=== PATIENT | female | born 1960 | race African-American/Black ===

== ENCOUNTER 2019-11-22 17:42 | Inpatient (IN) | payer OTHER ==
[~2019-11-22] VITALS: Ht 167.6 cm; Wt 73.6 kg
[~2019-11-22 17:42] MED LIST: ALBU2.5V8 INH; AMLO5TAB10 PO; ASPI-482 PO; CHLO25TA10 PO; CLON0.2T PO; CYCL10TA2 PO; ERGO500027 PO; GLIM1TAB7 PO; HYDR-2761 PO; RANI150C PO; [UNRECOGNIZED DRUG - OTHER] PO
[2019-11-22] MEDS ORDERED: IV NORMAL SALINE 1000ML BAG 1,000 ML IV ONE (18:15)
--- NOTE | 2019-11-22 18:18 | PHYS DOC ---
Past Medical History Past Medical History: Arthritis, Diabetes-Type II, High Cholesterol, Hype rtension, Other Additional Past Medical Histor: chronic kidney disease Past Surgical History: Other Additional Past Surgical Histo: left foot surgery " for arthritis" Smoking Status: Current Every Day Smoker Alcohol Use: Rarely Drug Use: None General Adult EDM: Chief Complaint: ABNORMAL LABS HPI: HPI: Patient is a 59 year old female who presents for evaluation after known abnormal labs. Patient has history of chronic kidney disease and her renal function has recently worsened. Dr. Gordon is her physician. Patient is also seen at [facility]. She is not yet on dialysis. There is no reported fever but she does have "chronic chills". There is no known exposure to COVID and she does not have any obvious COVID-like symptoms. In fact she is not in any pain and other than some mild decreased urination she has no physical symptoms Review of Systems: Review of Systems: Constitutional: Denies fever has chronic chills. [] Eyes: Denies change in visual acuity. [] HENT: Denies nasal congestion or sore throat. [] Respiratory: Denies cough or shortness of breath. [] Cardiovascular: Denies chest pain or edema. [] GI: Denies abdominal pain, nausea, vomiting, bloody stools or diarrhea. [] : Denies dysuria, decreased urination. [] Musculoskeletal: Denies back pain or joint pain. [] Integument: Denies rash. [] Neurologic: Denies headache, focal weakness or sensory changes. [] Endocrine: Denies polyuria or polydipsia. [] Lymphatic: Denies swollen glands. [] Psychiatric: Denies depression or anxiety. [] Heart Score: Risk Factors: Risk Factors: DM, Current or recent (<one month) smoker, HTN, HLP, family history of CAD, obesity. Risk Scores: Score 0 - 3: 2.5% MACE over next 6 weeks - Discharge Home Score 4 - 6: 20.3% MACE over next 6 weeks - Admit for Clinical Observation Score 7 - 10: 72.7% MACE over next 6 weeks - Early Invasive Strategies Allergies: Allergies: Allergies Coded Allergies Type Severity Reaction Last Updated Verified No Known Drug Allergies 01/15/14 No Physical Exam: PE: Constitutional: Well developed, well nourished, mild acute distress, non-toxic appearance. [] HENT: Normocephalic, atraumatic, bilateral external ears normal, oropharynx moist, no oral exudates, nose normal. [] Eyes: PERRL, EOMI, conjunctiva normal, no discharge. [] Neck: Normal range of motion, no tenderness, supple. [] Cardiovascular:Heart rate regular rhythm, no murmur [] Lungs & Thorax: Bilateral breath sounds clear to auscultation [] Abdomen: Bowel sounds normal, soft, no tenderness, no masses, no pulsatile masses. [] Skin: Warm, dry, no erythema, no rash. [] Back: No tenderness. [] Extremities: No tenderness, no cyanosis, ROM intact, no edema. [] Neurologic: Alert and oriented X 3, normal motor function, normal sensory function, no focal deficits noted. [] Psychologic: Affect normal, judgement normal, mood normal. [] Current Patient Data: Labs: Laboratory Tests Test 11/22/19 18:05 11/22/19 18:20 Urine Collection Type Void Urine Color Yellow Urine Clarity Clear Urine pH 5.5 Urine Specific [place] 1.015 Urine Protein >=300 mg/dL Urine Glucose (UA) Negative mg/dL Urine Ketones (Stick) Negative mg/dL Urine Blood Negative Urine Nitrite Negative Urine Bilirubin Negative Urine Urobilinogen Dipstick 0.2 mg/dL Urine Leukocyte Esterase Small Urine RBC 0 /HPF Urine WBC 5-10 /HPF Urine Squamous Epithelial Cells Many /LPF Urine Bacteria Few /HPF Urine Mucus Marked /LPF White Blood Count 11.5 x10^3/uL Red Blood Count 2.65 x10^6/uL Hemoglobin 8.5 g/dL Hematocrit 25.4 % Mean Corpuscular Volume 96 fL Mean Corpuscular Hemoglobin 32 pg Mean Corpuscular Hemoglobin Concent 34 g/dL Red Cell Distribution Width 16.1 % Platelet Count 164 x10^3/uL Neutrophils (%) (Auto) 52 % Lymphocytes (%) (Auto) 38 % Monocytes (%) (Auto) 7 % Eosinophils (%) (Auto) 3 % Basophils (%) (Auto) 1 % Neutrophils # (Auto) 5.9 x10^3/uL Lymphocytes # (Auto) 4.3 x10^3/uL Monocytes # (Auto) 0.8 x10^3/uL Eosinophils # (Auto) 0.3 x10^3/uL Basophils # (Auto) 0.1 x10^3/uL Sodium Level 143 mmol/L Potassium Level 4.2 mmol/L Chloride Level 110 mmol/L Carbon Dioxide Level 18 mmol/L Anion Gap 15 Blood Urea Nitrogen 57 mg/dL Creatinine 7.0 mg/dL Estimated GFR (Cockcroft-Gault) 7.2 BUN/Creatinine Ratio 8 Glucose Level 71 mg/dL Calcium Level 8.5 mg/dL Total Bilirubin 0.1 mg/dL Aspartate Amino Transf (AST/SGOT) 12 U/L Alanine Aminotransferase (ALT/SGPT) 9 U/L Alkaline Phosphatase 59 U/L Total Protein 6.6 g/dL Albumin 3.6 g/dL Albumin/Globulin Ratio 1.2 Current Medications Medications (Trade) Dose Ordered Sig/Omid Route PRN Reason Start Time Stop Time Status Last Admin Dose Admin Sodium Chloride 1,000 ml @ 500 mls/hr 1X ONCE IV 11/22/19 18:15 11/22/19 20:14 Hydralazine HCl (Apresoline Inj) 10 mg 1X ONCE IVP 11/22/19 18:45 11/22/19 18:46 DC EKG: EKG: EKG shows normal sinus rhythm, rate 71, LVH, inverted T waves in inferior and lateral leads, not STEMI read at 6:54 PM [] Radiology/Procedures: Radiology/Procedures: [facility] [address] [place] [address] IMAGING REPORT Signed PATIENT: VU LEDBETTER ACCOUNT: [id number] : 1960 LOCATION: ER AGE: 59 SEX: F EXAM STATUS: REG ER ORD. PHYSICIAN: MELLISA VERA DO REASON: short of air PROCEDURE: CHEST AP ONLY INDICATION: Reason: short of air / Spl. Instructions: / History: COMPARISON: None. FINDINGS: Single view of chest obtained. Hypertrophic changes of the acromioclavicular joints with degenerative changes of the shoulders. Cardiac silhouette is mildly enlarged. No definite focal airspace consolidation. IMPRESSION: * No focal airspace consolidation. Electronically signed by: Kervin Monson MD (11/22/2019 6:32 PM) [id number] DICTATED and SIGNED BY: KERVIN MONSON MD DATE: 11/22/191831 [] Course & Med Decision Making: Course & Med Decision Making Pertinent Labs and Imaging studies reviewed. (See chart for details) [] Gustavo Disclaimer: Gustavo Disclaimer: This electronic medical record was generated, in whole or in part, using a voice recognition dictation system. 1840 stable, blood pressure is very elevated. Apparently it is chronically significantly elevated according to pt and family. Patient denies any headache or blurry vision. Dose of IV hydralazine ordered. Patient is in renal failure and will need admission the hospital 1905 Dr. Vera called back and we discussed case at length. Will consult [facility]auger tonight as well. 1916 Dr. Brown from Nephrology called back. No new instructions tonight. Pt may need dialysis as soon as tomorrow. Departure Departure Impression: Primary Impression: Acute renal failure Qualified Codes: N17.9 - Acute kidney failure, unspecified Additional Impressions: Hypertensive urgency Anemia Qualified Codes: D64.9 - Anemia, unspecified Acute UTI Disposition: ADMITTED INPATIENT Admitting Physician: HIMMayo Condition: STABLE Referrals: KUSHAL TESFAYE MD (PCP) Justicifation of Admission Dx: Justifications for Admission: Justification of Admission Dx: Yes Acute Renal Failure: Serum Cr > 4mg/dL NIHSS Stroke Scale NIH Stroke Scale: NIH Stroke Scale Response (Comments) Value Level of Consciousness: 0 Alert/Responsive 0 LOC Questions: 0 Answers both correctly 0 LOC Commands: 0 Performs both tasks 0 Best Gaze: 0 Normal 0 Visual: 0 No visual loss 0 Facial Palsy: 0 Normal, symmetrical 0 Motor - Left Arm 0 No drift 0 Motor - Right Arm 0 No drift 0 Motor - Left Leg 0 No drift 0 Motor: Right Leg 0 No drift 0 Limb Ataxia: 0 Absent 0 Sensory: 0 No loss 0 Best Language: 0 Normal 0 Dysathria: 0 Normal 0 Extinction and Inattention: 0 Normal 0 Total 0 Critical Care Time Critical care time was 30 minutes exclusive of procedures. This included talking to admitting hospitalist as well as planning lead, family, laboratory rotation as well as x-ray review MELLISA VERA DO Nov 22, 2019 18:18
[2019-11-22 18:32] LABS: BASO # 0.1 x10^3/uL (0.0-0.2); BASO % 1 % (0-3); EOS # 0.3 x10^3/uL (0.0-0.7); EOS % 3 % (0-3); HEMATOCRIT 25.4 % (36.0-47.0); HEMOGLOBIN 8.5 g/dL (12.0-15.5); LYMPH # 4.3 x10^3/uL (1.0-4.8); LYMPH % 38 % (24-48); MEAN CORPUSCULAR HEMOGLOBIN 32 pg (25-35); MEAN CORPUSCULAR HGB CONC 34 g/dL (31-37); MEAN CORPUSCULAR VOLUME 96 fL (79-100); MONO # 0.8 x10^3/uL (0.0-1.1); MONO % 7 % (0-9); NEUT # 5.9 x10^3/uL (1.8-7.7); NEUT % 52 % (31-73); PLATELET COUNT 164 x10^3/uL (140-400); RED BLOOD COUNT 2.65 x10^6/uL (3.50-5.40); RED CELL DISTRIBUTION WIDTH 16.1 % (11.5-14.5); WHITE BLOOD COUNT 11.5 x10^3/uL (4.0-11.0)
[2019-11-22 18:33] LABS: BILIRUBIN,URINE NEGATIVE (NEG); CLARITY,URINE CLEAR; COLOR,URINE YELLOW; NITRITE,URINE NEGATIVE (NEG); PH,URINE 5.5 (<5.0-8.0); PROTEIN,URINE >=300 mg/dL (NEG-TRACE); UROBILINOGEN,URINE 0.2 mg/dL (0.2 mg/dL)
--- NOTE | 2019-11-22 18:35 | RAD ---
INDICATION: Reason: short of air / Spl. Instructions: / History: COMPARISON: None. FINDINGS: Single view of chest obtained. Hypertrophic changes of the acromioclavicular joints with degenerative changes of the shoulders. Cardiac silhouette is mildly enlarged. No definite focal airspace consolidation. IMPRESSION: * No focal airspace consolidation. Electronically signed by: Lico Montano MD (11/22/2019 6:32 PM) [id number]
[2019-11-22 18:38] LABS: CALCIUM 8.5 mg/dL (8.5-10.1); GFR 7.2; POTASSIUM 4.2 mmol/L (3.5-5.1)
[2019-11-22 18:43] LABS: BACTERIA,URINE FEW /HPF (0-FEW); RBC,URINE 0 /HPF (0-2); SQUAMOUS EPITHELIAL CELL,UR MANY /LPF
[2019-11-22 18:44] LABS: ALBUMIN 3.6 g/dL (3.4-5.0); ALBUMIN/GLOBULIN RATIO 1.2 (1.0-1.7); TOTAL BILIRUBIN 0.1 mg/dL (0.2-1.0); TOTAL PROTEIN 6.6 g/dL (6.4-8.2)
[2019-11-22] MEDS ORDERED: hydrALAZINE 20 MG/ML VIAL. IVP ONE ×2 (18:45→22:00)
[2019-11-22] MEDS ORDERED: cefTRIAXone IV Push 1 GM VIAL. IVP ONE (19:00)
[2019-11-22] MEDS ORDERED: ONDANSETRON PF 4 MG/2 ML VIAL. IV PRN (19:15)
[2019-11-22] MEDS ORDERED: LABETALOL 20 MG/4 ML DISP.SYRIN. IVP ONE (20:00)
--- NOTE | 2019-11-22 20:14 | EKG ---
[facility] [address] [place] [address] Test Date: 2019-11-22 Test Time: 18:51:18 Pat Name: VU LEDBETTER Department: Room: Gender: F Chrome Tanner: : 1960 Requested By: MLELISA VERA Order Number: [id number] Reading MD: Measurements Intervals [place] Rate: 71 P: 33 MI: 238 QRS: 29 QRSD: 98 T: -83 QT: 400 QTc: 435 Interpretive Statements SINUS RHYTHM PROLONGED MI INTERVAL T ABNORMALITY IN ANTEROLATERAL LEADS INFEROLATERAL LEADS ABNORMAL ECG RI6.01 No previous ECG available for comparison
[2019-11-22 21:10] VITALS: BP 254/127
[2019-11-22 21:30] VITALS: BP 254/120
[2019-11-22] MEDS ORDERED: AMLO10TA8 PO (21:44)
[2019-11-22] MEDS ORDERED: ERGO500027 PO (21:44)
[2019-11-22] MEDS ORDERED: ATEN50TA PO (21:44)
[2019-11-22] MEDS ORDERED: OLME40TA12 PO (21:44)
[2019-11-22] MEDS ORDERED: HYDR-2868 PO (21:44)
--- NOTE | 2019-11-22 22:06 | NUR ---
Pt arrived to unit at approx 2100 accompanied by ED nurse. Patient VS checked BP 254/120. Pt stated "I don't know why you guys worry about my blood pressure, it has been this way forever. I don't want anyone to harp on the BP because if you bring it down and then it goes back up i will have a stroke" educated pt on her BP. Pt stated "i already know all this, i don't want them to bring it down because it will go back up". Pt states that she takes her medications as prescribed, just filled all medications today. Pt states that she took all medications for today already. Assessment complete. Pt resting comfortably on RA. No complaints of pain at this time. Call placed to Dr. Vera regarding BP, orders received. Oriented pt to unit, call light in reach, reminded pt to call for assistance before ambulating. bed in low locked position. Will continue to monitor.
[2019-11-22 22:15] VITALS: BP 197/89
[2019-11-22 22:30] VITALS: BP 210/93
[2019-11-22 22:45] VITALS: BP 206/97
[2019-11-22 23:00] VITALS: BP 197/89
[2019-11-22] MEDS ORDERED: cloNIDine TTS-2 1 PATCH PATCH TD SCH (23:30)
--- NOTE | 2019-11-22 23:53 | NUR ---
Pt refusing 3 AM vitals, explained the reisk and benefit. Pt agreed to allow BP to be taken.
[2019-11-23] VITALS (8 sets, daily range): BP systolic 84–236; BP diastolic 54–115
[2019-11-23] MEDS: hydrALAZINE 20 MG/ML VIAL. IVP PRN ×3 (03:10→10:55)
[2019-11-23] MEDS: HYDROcodone/APAP 5/325MG 1 TAB TABLET PO PRN ×2 (08:46→13:19)
[2019-11-23] MEDS ORDERED: ALBUTEROL SULFATE 2.5 MG/3 ML NEBU. INH PRN (09:00)
[2019-11-23] MEDS: cloNIDine HCL 0.2 MG TABLET PO SCH ×3 (10:46→21:07)
[2019-11-23] MEDS: amLODIPine BESYLATE 10 MG TABLET PO SCH (10:47)
[2019-11-23] MEDS: hydrALAZINE 25 MG TABLET PO SCH ×2 (10:47→21:06)
[2019-11-23] MEDS: ATENOLOL 50 MG TABLET. PO SCH (10:48)
--- NOTE | 2019-11-23 10:48 | NUR ---
SS following for discharge planning. SS reviewed pt chart and discussed with pt RN. Pt is from home with spouse and is currently on room air. SS will continue to follow for discharge planning.
--- NOTE | 2019-11-23 11:28 | PDOC1 ---
History and Physical Date of Admission Date of Admission DATE: 11/23/19 TIME: 11:22 Identification/Chief Complaint Chief Complaint abnormal labs Problems: (1) Acute renal failure (2) Hypertensive urgency Source Source: Chart review, Patient History of Present Illness History of Present Illness 59 year old hx of HTN, CHD admitted from PCP office, Dr. Gordon due to elevated creatine. not HD dependent yet. patient states she has no complaints. denies chest pain sob, nausea vomiting diarrhea. no neuro symptoms. takes all meds as prescribed. has seen Dr. Brown as outpatient. noted SBP >200 in ED. admitted due to worsening creatine and elevated BP Past Medical History Past Medical History HTN, CKD Past Surgical History Past Surgical History denies Family History Family History reviewed and denies Social History Smoke: <1 pack per day ALCOHOL: none Drugs: None Current Problem List Problem List Problems Medical Problems: (1) Acute renal failure Status: Acute (2) Acute UTI Status: Acute (3) Anemia Status: Acute (4) Hypertensive urgency Status: Acute Current Medications Current Medications Current Medications Sodium Chloride 1,000 ml @ 500 mls/hr 1X ONCE IV Last administered on 11/22/19at 18:15; Start 11/22/19 at 18:15; Stop 11/22/19 at 20:14; Status DC Hydralazine HCl (Apresoline Inj) 10 mg 1X ONCE IVP Last administered on 11/22/19at 18:45; Start 11/22/19 at 18:45; Stop 11/22/19 at 18:46; Status DC Ceftriaxone Sodium (Rocephin) 1 gm 1X ONCE IVP Last administered on 11/22/19at 19:00; Start 11/22/19 at 19:00; Stop 11/22/19 at 19:01; Status DC Ondansetron HCl (Zofran) 4 mg PRN Q8HRS PRN IV NAUSEA/VOMITING; Start 11/22/19 at 19:15; Stop 11/23/19 at 19:14 Labetalol HCl (Normodyne Iv Push) 20 mg 1X ONCE IVP Last administered on 11/22/19at 20:00; Start 11/22/19 at 20:00; Stop 11/22/19 at 20:01; Status DC Hydralazine HCl (Apresoline Inj) 20 mg 1X ONCE IVP Last administered on 11/22/19at 21:52; Start 11/22/19 at 22:00; Stop 11/22/19 at 22:01; Status DC Clonidine HCl (Catapres Tts-2) 1 patch WEEKLY TD Last administered on 11/22/19at 23:08; Start 11/22/19 at 23:30 Hydralazine HCl (Apresoline Inj) 20 mg PRN Q3HRS PRN IVP ELEVATED BP, SEE COMMENTS Last administered on 11/23/19at 10:55; Start 11/22/19 at 23:00 Acetaminophen/ Hydrocodone Bitart (Lortab 5/325) 1 tab PRN Q4HRS PRN PO PAIN Last administered on 11/23/19at 08:46; Start 11/23/19 at 08:30 Albuterol Sulfate (Ventolin Neb Soln) 2.5 mg PRN Q6HRS PRN INH SHORTNESS OF BREATH; Start 11/23/19 at 09:00 Amlodipine Besylate (Norvasc) 10 mg DAILY PO Last administered on 11/23/19at 10:47; Start 11/23/19 at 09:00 Atenolol (Tenormin) 50 mg DAILY PO Last administered on 11/23/19at 10:48; Start 11/23/19 at 09:00 Clonidine HCl (Catapres) 0.2 mg TID PO Last administered on 11/23/19at 10:46; Start 11/23/19 at 09:00 Cyclobenzaprine HCl (Flexeril) 10 mg QHS PO ; Start 11/23/19 at 21:00 Ergocalciferol (Vitamin D2) 50,000 unit Nix PO ; Start 11/25/19 at 09:00 Hydralazine HCl (Apresoline) 25 mg BID PO Last administered on 11/23/19at 10:47; Start 11/23/19 at 09:00 Active Scripts Active Reported Vitamin D2 (Ergocalciferol (Vitamin D2)) 1,250 Mcg Capsule 1,250 Mcg PO QSU Atenolol 50 Mg Tablet 50 Mg PO DAILY Hydralazine Hcl 25 Mg Tablet 25 Mg PO BID Benicar (Olmesartan Medoxomil) 40 Mg Tablet 40 Mg PO DAILY PRN Amlodipine Besylate 10 Mg Tablet 10 Mg PO DAILY Clonidine Hcl 0.2 Mg Tablet 1 Tab PO TID Cyclobenzaprine Hcl 10 Mg Tablet 1 Tab PO QHS Proair Hfa Inhaler (Albuterol Sulfate) 8.5 Gm Hfa.aer.ad 1 Puff INH PRN Q6HRS PRN Hydrocodone-Apap 5-325 (Hydrocodone Bit/Acetaminophen) 1 Each Tablet 1 Tab PO PRN Q8HRS PRN Allergies Allergies: Coded Allergies: No Known Drug Allergies (Unverified , 11/22/19) ROS Review of System CONSTITUTIONAL: No fever or chills EYES: No recent changes SKIN: No rash or itching CARDIOVASCULAR: No chest pain, syncope, palpitations, or edema RESPIRATORY: No SOB or cough GASTROINTESTINAL: No nausea, vomiting or abdominal pain NEUROLOGICAL: No headaches or weakness ENDOCRINE: No cold or heat intolerance GENITOURINARY: No urgency or frequency of urination MUSCULOSKELETAL: No back pain or joint pain LYMPHATICS: No enlarged lymph nodes PSYCHIATRIC: No anxiety or depression Physical Exam Physical Exam GENERAL: No apparent distress. Alert and oriented. HEENT: Head normocephalic, atraumatic. NECK: Supple LUNGS: Clear to auscultation. HEART: RRR, S1, S2 present, pulses intact ABDOMEN: Soft, positive bowel sounds. EXTREMITIES: No cyanosis or edema. NEUROLOGIC: Normal speech, normal tone PSYCHIATRIC: Normal affect, normal mood. SKIN: No ulceration. Vitals Vitals Vital Signs Date Time Temp Pulse Resp B/P (MAP) Pulse Ox O2 Delivery O2 Flow Rate FiO2 11/23/19 11:00 98.0 75 20 224/103 (143) 98 Room Air 98.0 Labs Labs Laboratory Tests Test 11/22/19 18:05 11/22/19 18:20 Urine Collection Type Void Urine Color Yellow Urine Clarity Clear Urine pH 5.5 (<5.0-8.0) Urine Specific [place] 1.015 (1.000-1.030) Urine Protein >=300 mg/dL (NEG-TRACE) Urine Glucose (UA) Negative mg/dL (NEG) Urine Ketones (Stick) Negative mg/dL (NEG) Urine Blood Negative (NEG) Urine Nitrite Negative (NEG) Urine Bilirubin Negative (NEG) Urine Urobilinogen Dipstick 0.2 mg/dL (0.2 mg/dL) Urine Leukocyte Esterase Small (NEG) Urine RBC 0 /HPF (0-2) Urine WBC 5-10 /HPF (0-4) Urine Squamous Epithelial Cells Many /LPF Urine Bacteria Few /HPF (0-FEW) Urine Mucus Marked /LPF White Blood Count 11.5 x10^3/uL (4.0-11.0) Red Blood Count 2.65 x10^6/uL (3.50-5.40) Hemoglobin 8.5 g/dL (12.0-15.5) Hematocrit 25.4 % (36.0-47.0) Mean Corpuscular Volume 96 fL (79-100) Mean Corpuscular Hemoglobin 32 pg (25-35) Mean Corpuscular Hemoglobin Concent 34 g/dL (31-37) Red Cell Distribution Width 16.1 % (11.5-14.5) Platelet Count 164 x10^3/uL (140-400) Neutrophils (%) (Auto) 52 % (31-73) Lymphocytes (%) (Auto) 38 % (24-48) Monocytes (%) (Auto) 7 % (0-9) Eosinophils (%) (Auto) 3 % (0-3) Basophils (%) (Auto) 1 % (0-3) Neutrophils # (Auto) 5.9 x10^3/uL (1.8-7.7) Lymphocytes # (Auto) 4.3 x10^3/uL (1.0-4.8) Monocytes # (Auto) 0.8 x10^3/uL (0.0-1.1) Eosinophils # (Auto) 0.3 x10^3/uL (0.0-0.7) Basophils # (Auto) 0.1 x10^3/uL (0.0-0.2) Sodium Level 143 mmol/L (136-145) Potassium Level 4.2 mmol/L (3.5-5.1) Chloride Level 110 mmol/L (98-107) Carbon Dioxide Level 18 mmol/L (21-32) Anion Gap 15 (6-14) Blood Urea Nitrogen 57 mg/dL (7-20) Creatinine 7.0 mg/dL (0.6-1.0) Estimated GFR (Cockcroft-Gault) 7.2 BUN/Creatinine Ratio 8 (6-20) Glucose Level 71 mg/dL (70-99) Calcium Level 8.5 mg/dL (8.5-10.1) Total Bilirubin 0.1 mg/dL (0.2-1.0) Aspartate Amino Transf (AST/SGOT) 12 U/L (15-37) Alanine Aminotransferase (ALT/SGPT) 9 U/L (14-59) Alkaline Phosphatase 59 U/L (46-116) Total Protein 6.6 g/dL (6.4-8.2) Albumin 3.6 g/dL (3.4-5.0) Albumin/Globulin Ratio 1.2 (1.0-1.7) Laboratory Tests Test 11/22/19 18:05 11/22/19 18:20 Urine Collection Type Void Urine Color Yellow Urine Clarity Clear Urine pH 5.5 (<5.0-8.0) Urine Specific [place] 1.015 (1.000-1.030) Urine Protein >=300 mg/dL (NEG-TRACE) Urine Glucose (UA) Negative mg/dL (NEG) Urine Ketones (Stick) Negative mg/dL (NEG) Urine Blood Negative (NEG) Urine Nitrite Negative (NEG) Urine Bilirubin Negative (NEG) Urine Urobilinogen Dipstick 0.2 mg/dL (0.2 mg/dL) Urine Leukocyte Esterase Small (NEG) Urine RBC 0 /HPF (0-2) Urine WBC 5-10 /HPF (0-4) Urine Squamous Epithelial Cells Many /LPF Urine Bacteria Few /HPF (0-FEW) Urine Mucus Marked /LPF White Blood Count 11.5 x10^3/uL (4.0-11.0) Red Blood Count 2.65 x10^6/uL (3.50-5.40) Hemoglobin 8.5 g/dL (12.0-15.5) Hematocrit 25.4 % (36.0-47.0) Mean Corpuscular Volume 96 fL (79-100) Mean Corpuscular Hemoglobin 32 pg (25-35) Mean Corpuscular Hemoglobin Concent 34 g/dL (31-37) Red Cell Distribution Width 16.1 % (11.5-14.5) Platelet Count 164 x10^3/uL (140-400) Neutrophils (%) (Auto) 52 % (31-73) Lymphocytes (%) (Auto) 38 % (24-48) Monocytes (%) (Auto) 7 % (0-9) Eosinophils (%) (Auto) 3 % (0-3) Basophils (%) (Auto) 1 % (0-3) Neutrophils # (Auto) 5.9 x10^3/uL (1.8-7.7) Lymphocytes # (Auto) 4.3 x10^3/uL (1.0-4.8) Monocytes # (Auto) 0.8 x10^3/uL (0.0-1.1) Eosinophils # (Auto) 0.3 x10^3/uL (0.0-0.7) Basophils # (Auto) 0.1 x10^3/uL (0.0-0.2) Sodium Level 143 mmol/L (136-145) Potassium Level 4.2 mmol/L (3.5-5.1) Chloride Level 110 mmol/L (98-107) Carbon Dioxide Level 18 mmol/L (21-32) Anion Gap 15 (6-14) Blood Urea Nitrogen 57 mg/dL (7-20) Creatinine 7.0 mg/dL (0.6-1.0) Estimated GFR (Cockcroft-Gault) 7.2 BUN/Creatinine Ratio 8 (6-20) Glucose Level 71 mg/dL (70-99) Calcium Level 8.5 mg/dL (8.5-10.1) Total Bilirubin 0.1 mg/dL (0.2-1.0) Aspartate Amino Transf (AST/SGOT) 12 U/L (15-37) Alanine Aminotransferase (ALT/SGPT) 9 U/L (14-59) Alkaline Phosphatase 59 U/L (46-116) Total Protein 6.6 g/dL (6.4-8.2) Albumin 3.6 g/dL (3.4-5.0) Albumin/Globulin Ratio 1.2 (1.0-1.7) VTE Prophylaxis Ordered VTE Prophylaxis Devices: Yes VTE Pharmacological Prophylaxi: Yes Assessment/Plan Assessment/Plan ASSESSMENT HTN Urgency Progressive Renal Failure CKD stage 5 secondary to likely HTN Nephropathy Anemia of CKD PLAN admit to tele bed restart home BP meds, prn [facility] nephro consult for HD considerations lytes stable daily BMP dvt ppx full code Justicifation of Admission Dx: Justifications for Admission: Justification of Admission Dx: Yes Acute Renal Failure: Serum Cr > 4mg/dL Problem Qualifiers (1) Acute renal failure: Acute renal failure type: unspecified Qualified Codes: N17.9 - Acute kidney failure, unspecified JERRY JOLLEY MD Nov 23, 2019 11:28
[2019-11-23] MEDS ORDERED: 0.9 % SODIUM CHLORIDE 10 ML DISP.SYRIN. IV PRN ×2 (11:30)
[2019-11-23] MEDS ORDERED: diphenhydrAMINE 50 MG/ML VIAL IV PRN ×2 (11:30)
[2019-11-23] MEDS ORDERED: ALBUMIN HUMAN 25% 200 ML IV PRN (11:30)
[2019-11-23] MEDS ORDERED: DIALYSIS PATIENT. MC PRN (11:30)
[2019-11-23] MEDS ORDERED: IV NORMAL SALINE 1000ML BAG 1,000 ML IV PRN ×2 (11:30)
--- NOTE | 2019-11-23 12:21 | PDOC2 ---
CONSULT Date of Consult Date of Consult DATE: 11/23/19 TIME: 12:12 Reason for Consult Reason for Consult: ASHVIN Source Source: Chart review, Patient History of Present Illness Reason for Visit: Pt is 59 year old AAF hx of HTN, CHD admitted from PCP office, Dr. Broderick due to elevated creatinine. Deniesany complaints. denies chest pain sob, nausea vomiting diarrhea. no neuro symptoms She was seen in our office in Feb 2019 with Cr in 3's and low eGFR , was scheduled for CV in Mar which Pt didint keep . She did not show up for Fu to our office Denies Urinary complaints Currently denies any complaints. noted SBP >200 in ED Past Medical History Past Medical History HTN, CKD Past Surgical History Past Surgical History Denies Family History Family History No significant FHx per Pt Social History Social History Smoke: <1 pack per day ALCOHOL: none Drugs: None <1 pack per day ALCOHOL: none Drugs: None Current Problem List Problem List Problems Medical Problems: (1) Acute renal failure Status: Acute (2) Acute UTI Status: Acute (3) Anemia Status: Acute (4) Hypertensive urgency Status: Acute Current Medications Current Medications Current Medications Sodium Chloride 1,000 ml @ 500 mls/hr 1X ONCE IV Last administered on 11/22/19at 18:15; Start 11/22/19 at 18:15; Stop 11/22/19 at 20:14; Status DC Hydralazine HCl (Apresoline Inj) 10 mg 1X ONCE IVP Last administered on 11/22/19at 18:45; Start 11/22/19 at 18:45; Stop 11/22/19 at 18:46; Status DC Ceftriaxone Sodium (Rocephin) 1 gm 1X ONCE IVP Last administered on 11/22/19at 19:00; Start 11/22/19 at 19:00; Stop 11/22/19 at 19:01; Status DC Ondansetron HCl (Zofran) 4 mg PRN Q8HRS PRN IV NAUSEA/VOMITING; Start 11/22/19 at 19:15; Stop 11/23/19 at 19:14 Labetalol HCl (Normodyne Iv Push) 20 mg 1X ONCE IVP Last administered on 11/22/19at 20:00; Start 11/22/19 at 20:00; Stop 11/22/19 at 20:01; Status DC Hydralazine HCl (Apresoline Inj) 20 mg 1X ONCE IVP Last administered on 11/22/19at 21:52; Start 11/22/19 at 22:00; Stop 11/22/19 at 22:01; Status DC Clonidine HCl (Catapres Tts-2) 1 patch WEEKLY TD Last administered on 11/22/19at 23:08; Start 11/22/19 at 23:30 Hydralazine HCl (Apresoline Inj) 20 mg PRN Q3HRS PRN IVP ELEVATED BP, SEE COMMENTS Last administered on 11/23/19at 10:55; Start 11/22/19 at 23:00 Acetaminophen/ Hydrocodone Bitart (Lortab 5/325) 1 tab PRN Q4HRS PRN PO PAIN Last administered on 11/23/19at 08:46; Start 11/23/19 at 08:30 Albuterol Sulfate (Ventolin Neb Soln) 2.5 mg PRN Q6HRS PRN INH SHORTNESS OF BREATH; Start 11/23/19 at 09:00 Amlodipine Besylate (Norvasc) 10 mg DAILY PO Last administered on 11/23/19at 10:47; Start 11/23/19 at 09:00 Atenolol (Tenormin) 50 mg DAILY PO Last administered on 11/23/19at 10:48; Start 11/23/19 at 09:00 Clonidine HCl (Catapres) 0.2 mg TID PO Last administered on 11/23/19at 10:46; Start 11/23/19 at 09:00 Cyclobenzaprine HCl (Flexeril) 10 mg QHS PO ; Start 11/23/19 at 21:00 Ergocalciferol (Vitamin D2) 50,000 unit Nix PO ; Start 11/25/19 at 09:00 Hydralazine HCl (Apresoline) 25 mg BID PO Last administered on 11/23/19at 10:47; Start 11/23/19 at 09:00 Heparin Sodium (Porcine) (Heparin Sodium) 5,000 unit Q8HRS SQ ; Start 11/23/19 at 14:00 Sodium Chloride 1,000 ml @ 1,000 mls/hr Q1H PRN IV hypotension; Start 11/23/19 at 11:30; Stop 11/23/19 at 17:29 Albumin Human 200 ml @ 200 mls/hr 1X PRN PRN IV Hypotension; Start 11/23/19 at 11:30; Stop 11/23/19 at 17:29 Diphenhydramine HCl (Benadryl) 25 mg 1X PRN PRN IV ITCHING; Start 11/23/19 at 11:30; Stop 11/24/19 at 11:29 Diphenhydramine HCl (Benadryl) 25 mg 1X PRN PRN IV ITCHING; Start 11/23/19 at 11:30; Stop 11/24/19 at 11:29 Sodium Chloride (Normal Saline Flush) 10 ml 1X PRN PRN IV AP catheter pack; Start 11/23/19 at 11:30; Stop 11/24/19 at 11:29 Sodium Chloride (Normal Saline Flush) 10 ml 1X PRN PRN IV PRODUCTION ADMINISTRATOR catheter pack; Start 11/23/19 at 11:30; Stop 11/24/19 at 11:29 Sodium Chloride 1,000 ml @ 400 mls/hr Q2H30M PRN IV PATENCY; Start 11/23/19 at 11:30; Stop 11/23/19 at 23:29 Info (PHARMACY MONITORING -- do not chart) 1 each PRN DAILY PRN MC SEE COMMENTS; Start 11/23/19 at 11:30 Active Scripts Active Reported Vitamin D2 (Ergocalciferol (Vitamin D2)) 1,250 Mcg Capsule 1,250 Mcg PO QSU Atenolol 50 Mg Tablet 50 Mg PO DAILY Hydralazine Hcl 25 Mg Tablet 25 Mg PO BID Benicar (Olmesartan Medoxomil) 40 Mg Tablet 40 Mg PO DAILY PRN Amlodipine Besylate 10 Mg Tablet 10 Mg PO DAILY Clonidine Hcl 0.2 Mg Tablet 1 Tab PO TID Cyclobenzaprine Hcl 10 Mg Tablet 1 Tab PO QHS Proair Hfa Inhaler (Albuterol Sulfate) 8.5 Gm Hfa.aer.ad 1 Puff INH PRN Q6HRS PRN Hydrocodone-Apap 5-325 (Hydrocodone Bit/Acetaminophen) 1 Each Tablet 1 Tab PO PRN Q8HRS PRN Allergies Allergies: Coded Allergies: No Known Drug Allergies (Unverified , 11/22/19) ROS Review of System Per HPI, rest Negative Physical Exam Physical Exam GENERAL: No apparent distress. Alert and oriented. HEENT: Head normocephalic, atraumatic. NECK: Supple LUNGS: Clear to auscultation.Non labored HEART: RRR, S1, S2 present, No rub ABDOMEN: Soft, NT EXTREMITIES: No cyanosis or edema. NEUROLOGIC: Normal speech, normal tone, No Asterexis PSYCHIATRIC: Normal affect, normal mood. SKIN: No rash No Mckenna, No CVA or SP tenderness Vital Signs Vital Signs Date Time Temp Pulse Resp B/P (MAP) Pulse Ox O2 Delivery O2 Flow Rate FiO2 11/23/19 11:23 205/105 (138) 11/23/19 11:00 98.0 75 20 98 Room Air 98.0 Assessment & Plan Suspect worsening of CKD stage 4 Last seen in our office in Feb 2019, scheduled for CV visit- pt didint keep any appts Asymptomatic currently, E-Lytes stable Will Initiate HD,Treatment plan sue Morales HDC today , SW consult for OP chair time Anemia - Check Fe studies HTN Urgency Labs Labs Laboratory Tests Test 11/22/19 18:05 11/22/19 18:20 Urine Collection Type Void Urine Color Yellow Urine Clarity Clear Urine pH 5.5 (<5.0-8.0) Urine Specific [place] 1.015 (1.000-1.030) Urine Protein >=300 mg/dL (NEG-TRACE) Urine Glucose (UA) Negative mg/dL (NEG) Urine Ketones (Stick) Negative mg/dL (NEG) Urine Blood Negative (NEG) Urine Nitrite Negative (NEG) Urine Bilirubin Negative (NEG) Urine Urobilinogen Dipstick 0.2 mg/dL (0.2 mg/dL) Urine Leukocyte Esterase Small (NEG) Urine RBC 0 /HPF (0-2) Urine WBC 5-10 /HPF (0-4) Urine Squamous Epithelial Cells Many /LPF Urine Bacteria Few /HPF (0-FEW) Urine Mucus Marked /LPF White Blood Count 11.5 x10^3/uL (4.0-11.0) Red Blood Count 2.65 x10^6/uL (3.50-5.40) Hemoglobin 8.5 g/dL (12.0-15.5) Hematocrit 25.4 % (36.0-47.0) Mean Corpuscular Volume 96 fL (79-100) Mean Corpuscular Hemoglobin 32 pg (25-35) Mean Corpuscular Hemoglobin Concent 34 g/dL (31-37) Red Cell Distribution Width 16.1 % (11.5-14.5) Platelet Count 164 x10^3/uL (140-400) Neutrophils (%) (Auto) 52 % (31-73) Lymphocytes (%) (Auto) 38 % (24-48) Monocytes (%) (Auto) 7 % (0-9) Eosinophils (%) (Auto) 3 % (0-3) Basophils (%) (Auto) 1 % (0-3) Neutrophils # (Auto) 5.9 x10^3/uL (1.8-7.7) Lymphocytes # (Auto) 4.3 x10^3/uL (1.0-4.8) Monocytes # (Auto) 0.8 x10^3/uL (0.0-1.1) Eosinophils # (Auto) 0.3 x10^3/uL (0.0-0.7) Basophils # (Auto) 0.1 x10^3/uL (0.0-0.2) Sodium Level 143 mmol/L (136-145) Potassium Level 4.2 mmol/L (3.5-5.1) Chloride Level 110 mmol/L (98-107) Carbon Dioxide Level 18 mmol/L (21-32) Anion Gap 15 (6-14) Blood Urea Nitrogen 57 mg/dL (7-20) Creatinine 7.0 mg/dL (0.6-1.0) Estimated GFR (Cockcroft-Gault) 7.2 BUN/Creatinine Ratio 8 (6-20) Glucose Level 71 mg/dL (70-99) Calcium Level 8.5 mg/dL (8.5-10.1) Total Bilirubin 0.1 mg/dL (0.2-1.0) Aspartate Amino Transf (AST/SGOT) 12 U/L (15-37) Alanine Aminotransferase (ALT/SGPT) 9 U/L (14-59) Alkaline Phosphatase 59 U/L (46-116) Total Protein 6.6 g/dL (6.4-8.2) Albumin 3.6 g/dL (3.4-5.0) Albumin/Globulin Ratio 1.2 (1.0-1.7) Laboratory Tests Test 11/22/19 18:05 11/22/19 18:20 Urine Collection Type Void Urine Color Yellow Urine Clarity Clear Urine pH 5.5 (<5.0-8.0) Urine Specific [place] 1.015 (1.000-1.030) Urine Protein >=300 mg/dL (NEG-TRACE) Urine Glucose (UA) Negative mg/dL (NEG) Urine Ketones (Stick) Negative mg/dL (NEG) Urine Blood Negative (NEG) Urine Nitrite Negative (NEG) Urine Bilirubin Negative (NEG) Urine Urobilinogen Dipstick 0.2 mg/dL (0.2 mg/dL) Urine Leukocyte Esterase Small (NEG) Urine RBC 0 /HPF (0-2) Urine WBC 5-10 /HPF (0-4) Urine Squamous Epithelial Cells Many /LPF Urine Bacteria Few /HPF (0-FEW) Urine Mucus Marked /LPF White Blood Count 11.5 x10^3/uL (4.0-11.0) Red Blood Count 2.65 x10^6/uL (3.50-5.40) Hemoglobin 8.5 g/dL (12.0-15.5) Hematocrit 25.4 % (36.0-47.0) Mean Corpuscular Volume 96 fL (79-100) Mean Corpuscular Hemoglobin 32 pg (25-35) Mean Corpuscular Hemoglobin Concent 34 g/dL (31-37) Red Cell Distribution Width 16.1 % (11.5-14.5) Platelet Count 164 x10^3/uL (140-400) Neutrophils (%) (Auto) 52 % (31-73) Lymphocytes (%) (Auto) 38 % (24-48) Monocytes (%) (Auto) 7 % (0-9) Eosinophils (%) (Auto) 3 % (0-3) Basophils (%) (Auto) 1 % (0-3) Neutrophils # (Auto) 5.9 x10^3/uL (1.8-7.7) Lymphocytes # (Auto) 4.3 x10^3/uL (1.0-4.8) Monocytes # (Auto) 0.8 x10^3/uL (0.0-1.1) Eosinophils # (Auto) 0.3 x10^3/uL (0.0-0.7) Basophils # (Auto) 0.1 x10^3/uL (0.0-0.2) Sodium Level 143 mmol/L (136-145) Potassium Level 4.2 mmol/L (3.5-5.1) Chloride Level 110 mmol/L (98-107) Carbon Dioxide Level 18 mmol/L (21-32) Anion Gap 15 (6-14) Blood Urea Nitrogen 57 mg/dL (7-20) Creatinine 7.0 mg/dL (0.6-1.0) Estimated GFR (Cockcroft-Gault) 7.2 BUN/Creatinine Ratio 8 (6-20) Glucose Level 71 mg/dL (70-99) Calcium Level 8.5 mg/dL (8.5-10.1) Total Bilirubin 0.1 mg/dL (0.2-1.0) Aspartate Amino Transf (AST/SGOT) 12 U/L (15-37) Alanine Aminotransferase (ALT/SGPT) 9 U/L (14-59) Alkaline Phosphatase 59 U/L (46-116) Total Protein 6.6 g/dL (6.4-8.2) Albumin 3.6 g/dL (3.4-5.0) Albumin/Globulin Ratio 1.2 (1.0-1.7) Review All relevant outside records, renal labs, imaging studies, telemetry/EKG's were reviewed. RANJIT BARAJAS MD Nov 23, 2019 12:20
[2019-11-23] MEDS ORDERED: LIDOCAINE 1%/EPI 1:100,000 20 ML VIAL. ONE (12:44)
[2019-11-23 13:52] LABS: PROTHROMBIN TIME PATIENT 12.8 SEC (11.7-14.0)
[2019-11-23] MEDS: HEPARIN for SUB-Q USE 5,000 UNIT/ML VIAL. SQ SCH ×2 (14:00→21:12)
[2019-11-23] MEDS ORDERED: MIDAZOLAM HCL/PF 2 MG/2 ML VIAL. ONE (14:05)
[2019-11-23] MEDS ORDERED: fentaNYL PF VIAL 100 MCG/2 ML VIAL ONE (14:05)
[2019-11-23] MEDS ORDERED: ceFAZolin SODIUM IV Push 1 GM VIAL. IVP ONE ×2 (14:05→14:30)
--- NOTE | 2019-11-23 14:13 | PDOC2 ---
CONSULT Date of Consult Date of Consult DATE: 11/23/19 TIME: 14:08 Reason for Consult Reason for Consult: Hypertensive urgency Referring Physician Referring Physician: Dr. Vrea Identification/Chief Complaint Chief Complaint Weakness Source Source: Chart review, Patient History of Present Illness Reason for Visit: The patient is a 59-year-old female with a history of chronic kidney disease, hypertension and diabetes mellitus who was admitted from her primary physician's office due to abnormal labs including an updated BUN of 5.7 and a creatinine of 7.0. In the emergency the patient also had severely elevated blood pressure with a systolic pressure greater than 200. EKG showed a sinus rhythm, left ventricle hypertrophy and inverted T waves. The patient denied any chest pain or shortness of breath. She has been seen by the renal service and dialysis is being arranged. She denies chest pain or shortness of breath. Past Medical History Cardiovascular: HTN, Hyperlipidemia Pulmonary: COPD Renal/: Chronic renal insuff Endocrine: Diabetes Past Surgical History Past Surgical History: Other (Left foot surgery) Family History Family History: Hypertension Social History <1 pack per day ALCOHOL: rare Drugs: None Current Problem List Problem List Problems Medical Problems: (1) Acute renal failure Status: Acute (2) Acute UTI Status: Acute (3) Anemia Status: Acute (4) Hypertensive urgency Status: Acute Current Medications Current Medications Current Medications Sodium Chloride 1,000 ml @ 500 mls/hr 1X ONCE IV Last administered on 11/22/19at 18:15; Start 11/22/19 at 18:15; Stop 11/22/19 at 20:14; Status DC Hydralazine HCl (Apresoline Inj) 10 mg 1X ONCE IVP Last administered on 11/22/19at 18:45; Start 11/22/19 at 18:45; Stop 11/22/19 at 18:46; Status DC Ceftriaxone Sodium (Rocephin) 1 gm 1X ONCE IVP Last administered on 11/22/19at 19:00; Start 11/22/19 at 19:00; Stop 11/22/19 at 19:01; Status DC Ondansetron HCl (Zofran) 4 mg PRN Q8HRS PRN IV NAUSEA/VOMITING; Start 11/22/19 at 19:15; Stop 11/23/19 at 19:14 Labetalol HCl (Normodyne Iv Push) 20 mg 1X ONCE IVP Last administered on 11/22/19at 20:00; Start 11/22/19 at 20:00; Stop 11/22/19 at 20:01; Status DC Hydralazine HCl (Apresoline Inj) 20 mg 1X ONCE IVP Last administered on 11/22/19at 21:52; Start 11/22/19 at 22:00; Stop 11/22/19 at 22:01; Status DC Clonidine HCl (Catapres Tts-2) 1 patch WEEKLY TD Last administered on 11/22/19at 23:08; Start 11/22/19 at 23:30 Hydralazine HCl (Apresoline Inj) 20 mg PRN Q3HRS PRN IVP ELEVATED BP, SEE COMMENTS Last administered on 11/23/19at 10:55; Start 11/22/19 at 23:00 Acetaminophen/ Hydrocodone Bitart (Lortab 5/325) 1 tab PRN Q4HRS PRN PO PAIN Last administered on 11/23/19at 13:19; Start 11/23/19 at 08:30 Albuterol Sulfate (Ventolin Neb Soln) 2.5 mg PRN Q6HRS PRN INH SHORTNESS OF BREATH; Start 11/23/19 at 09:00 Amlodipine Besylate (Norvasc) 10 mg DAILY PO Last administered on 11/23/19at 10:47; Start 11/23/19 at 09:00 Atenolol (Tenormin) 50 mg DAILY PO Last administered on 11/23/19at 10:48; Start 11/23/19 at 09:00 Clonidine HCl (Catapres) 0.2 mg TID PO Last administered on 11/23/19at 10:46; Start 11/23/19 at 09:00 Cyclobenzaprine HCl (Flexeril) 10 mg QHS PO ; Start 11/23/19 at 21:00 Ergocalciferol (Vitamin D2) 50,000 unit Nix PO ; Start 11/25/19 at 09:00 Hydralazine HCl (Apresoline) 25 mg BID PO Last administered on 11/23/19at 10:47; Start 11/23/19 at 09:00 Heparin Sodium (Porcine) (Heparin Sodium) 5,000 unit Q8HRS SQ ; Start 11/23/19 at 14:00 Sodium Chloride 1,000 ml @ 1,000 mls/hr Q1H PRN IV hypotension; Start 11/23/19 at 11:30; Stop 11/23/19 at 17:29 Albumin Human 200 ml @ 200 mls/hr 1X PRN PRN IV Hypotension; Start 11/23/19 at 11:30; Stop 11/23/19 at 17:29 Diphenhydramine HCl (Benadryl) 25 mg 1X PRN PRN IV ITCHING; Start 11/23/19 at 11:30; Stop 11/24/19 at 11:29 Diphenhydramine HCl (Benadryl) 25 mg 1X PRN PRN IV ITCHING; Start 11/23/19 at 11:30; Stop 11/24/19 at 11:29 Sodium Chloride (Normal Saline Flush) 10 ml 1X PRN PRN IV AP catheter pack; Start 11/23/19 at 11:30; Stop 11/24/19 at 11:29 Sodium Chloride (Normal Saline Flush) 10 ml 1X PRN PRN IV FRAUD EXAMINER catheter pack; Start 11/23/19 at 11:30; Stop 11/24/19 at 11:29 Sodium Chloride 1,000 ml @ 400 mls/hr Q2H30M PRN IV PATENCY; Start 11/23/19 at 11:30; Stop 11/23/19 at 23:29 Info (PHARMACY MONITORING -- do not chart) 1 each PRN DAILY PRN MC SEE COMMENTS; Start 11/23/19 at 11:30 Lidocaine/ Epinephrine (LIDOCAINE 1%-EPI 1:100,000 Multi-Dose) 20 ml STK-MED ONCE .ROUTE ; Start 11/23/19 at 12:44; Stop 11/23/19 at 12:44; Status DC Active Scripts Active Reported Vitamin D2 (Ergocalciferol (Vitamin D2)) 1,250 Mcg Capsule 1,250 Mcg PO QSU Atenolol 50 Mg Tablet 50 Mg PO DAILY Hydralazine Hcl 25 Mg Tablet 25 Mg PO BID Benicar (Olmesartan Medoxomil) 40 Mg Tablet 40 Mg PO DAILY PRN Amlodipine Besylate 10 Mg Tablet 10 Mg PO DAILY Clonidine Hcl 0.2 Mg Tablet 1 Tab PO TID Cyclobenzaprine Hcl 10 Mg Tablet 1 Tab PO QHS Proair Hfa Inhaler (Albuterol Sulfate) 8.5 Gm Hfa.aer.ad 1 Puff INH PRN Q6HRS PRN Hydrocodone-Apap 5-325 (Hydrocodone Bit/Acetaminophen) 1 Each Tablet 1 Tab PO PRN Q8HRS PRN Allergies Allergies: Coded Allergies: No Known Drug Allergies (Unverified , 11/22/19) ROS General: YES: Fatigue, Malaise Respiratory: YES: SOB with excertion Physical Exam General: mild distress Lungs: Other (Moderately decreased breath sounds) Heart: Regular rate Abdomen: Normal bowel sounds Vitals VITALS Vital Signs Date Time Temp Pulse Resp B/P (MAP) Pulse Ox O2 Delivery O2 Flow Rate FiO2 11/23/19 13:19 98 Room Air 11/23/19 11:23 205/105 (138) 11/23/19 11:00 98.0 75 20 98.0 Labs Labs Laboratory Tests Test 11/22/19 18:05 11/22/19 18:20 11/23/19 13:20 Urine Collection Type Void Urine Color Yellow Urine Clarity Clear Urine pH 5.5 (<5.0-8.0) Urine Specific [place] 1.015 (1.000-1.030) Urine Protein >=300 mg/dL (NEG-TRACE) Urine Glucose (UA) Negative mg/dL (NEG) Urine Ketones (Stick) Negative mg/dL (NEG) Urine Blood Negative (NEG) Urine Nitrite Negative (NEG) Urine Bilirubin Negative (NEG) Urine Urobilinogen Dipstick 0.2 mg/dL (0.2 mg/dL) Urine Leukocyte Esterase Small (NEG) Urine RBC 0 /HPF (0-2) Urine WBC 5-10 /HPF (0-4) Urine Squamous Epithelial Cells Many /LPF Urine Bacteria Few /HPF (0-FEW) Urine Mucus Marked /LPF White Blood Count 11.5 x10^3/uL (4.0-11.0) Red Blood Count 2.65 x10^6/uL (3.50-5.40) Hemoglobin 8.5 g/dL (12.0-15.5) Hematocrit 25.4 % (36.0-47.0) Mean Corpuscular Volume 96 fL (79-100) Mean Corpuscular Hemoglobin 32 pg (25-35) Mean Corpuscular Hemoglobin Concent 34 g/dL (31-37) Red Cell Distribution Width 16.1 % (11.5-14.5) Platelet Count 164 x10^3/uL (140-400) Neutrophils (%) (Auto) 52 % (31-73) Lymphocytes (%) (Auto) 38 % (24-48) Monocytes (%) (Auto) 7 % (0-9) Eosinophils (%) (Auto) 3 % (0-3) Basophils (%) (Auto) 1 % (0-3) Neutrophils # (Auto) 5.9 x10^3/uL (1.8-7.7) Lymphocytes # (Auto) 4.3 x10^3/uL (1.0-4.8) Monocytes # (Auto) 0.8 x10^3/uL (0.0-1.1) Eosinophils # (Auto) 0.3 x10^3/uL (0.0-0.7) Basophils # (Auto) 0.1 x10^3/uL (0.0-0.2) Sodium Level 143 mmol/L (136-145) Potassium Level 4.2 mmol/L (3.5-5.1) Chloride Level 110 mmol/L (98-107) Carbon Dioxide Level 18 mmol/L (21-32) Anion Gap 15 (6-14) Blood Urea Nitrogen 57 mg/dL (7-20) Creatinine 7.0 mg/dL (0.6-1.0) Estimated GFR (Cockcroft-Gault) 7.2 BUN/Creatinine Ratio 8 (6-20) Glucose Level 71 mg/dL (70-99) Calcium Level 8.5 mg/dL (8.5-10.1) Total Bilirubin 0.1 mg/dL (0.2-1.0) Aspartate Amino Transf (AST/SGOT) 12 U/L (15-37) Alanine Aminotransferase (ALT/SGPT) 9 U/L (14-59) Alkaline Phosphatase 59 U/L (46-116) Total Protein 6.6 g/dL (6.4-8.2) Albumin 3.6 g/dL (3.4-5.0) Albumin/Globulin Ratio 1.2 (1.0-1.7) Prothrombin Time 12.8 SEC (11.7-14.0) Prothromb Time International Ratio 1.0 (0.8-1.1) Activated Partial Thromboplast Time 33 SEC (24-38) Laboratory Tests Test 11/22/19 18:05 11/22/19 18:20 11/23/19 13:20 Urine Collection Type Void Urine Color Yellow Urine Clarity Clear Urine pH 5.5 (<5.0-8.0) Urine Specific [place] 1.015 (1.000-1.030) Urine Protein >=300 mg/dL (NEG-TRACE) Urine Glucose (UA) Negative mg/dL (NEG) Urine Ketones (Stick) Negative mg/dL (NEG) Urine Blood Negative (NEG) Urine Nitrite Negative (NEG) Urine Bilirubin Negative (NEG) Urine Urobilinogen Dipstick 0.2 mg/dL (0.2 mg/dL) Urine Leukocyte Esterase Small (NEG) Urine RBC 0 /HPF (0-2) Urine WBC 5-10 /HPF (0-4) Urine Squamous Epithelial Cells Many /LPF Urine Bacteria Few /HPF (0-FEW) Urine Mucus Marked /LPF White Blood Count 11.5 x10^3/uL (4.0-11.0) Red Blood Count 2.65 x10^6/uL (3.50-5.40) Hemoglobin 8.5 g/dL (12.0-15.5) Hematocrit 25.4 % (36.0-47.0) Mean Corpuscular Volume 96 fL (79-100) Mean Corpuscular Hemoglobin 32 pg (25-35) Mean Corpuscular Hemoglobin Concent 34 g/dL (31-37) Red Cell Distribution Width 16.1 % (11.5-14.5) Platelet Count 164 x10^3/uL (140-400) Neutrophils (%) (Auto) 52 % (31-73) Lymphocytes (%) (Auto) 38 % (24-48) Monocytes (%) (Auto) 7 % (0-9) Eosinophils (%) (Auto) 3 % (0-3) Basophils (%) (Auto) 1 % (0-3) Neutrophils # (Auto) 5.9 x10^3/uL (1.8-7.7) Lymphocytes # (Auto) 4.3 x10^3/uL (1.0-4.8) Monocytes # (Auto) 0.8 x10^3/uL (0.0-1.1) Eosinophils # (Auto) 0.3 x10^3/uL (0.0-0.7) Basophils # (Auto) 0.1 x10^3/uL (0.0-0.2) Sodium Level 143 mmol/L (136-145) Potassium Level 4.2 mmol/L (3.5-5.1) Chloride Level 110 mmol/L (98-107) Carbon Dioxide Level 18 mmol/L (21-32) Anion Gap 15 (6-14) Blood Urea Nitrogen 57 mg/dL (7-20) Creatinine 7.0 mg/dL (0.6-1.0) Estimated GFR (Cockcroft-Gault) 7.2 BUN/Creatinine Ratio 8 (6-20) Glucose Level 71 mg/dL (70-99) Calcium Level 8.5 mg/dL (8.5-10.1) Total Bilirubin 0.1 mg/dL (0.2-1.0) Aspartate Amino Transf (AST/SGOT) 12 U/L (15-37) Alanine Aminotransferase (ALT/SGPT) 9 U/L (14-59) Alkaline Phosphatase 59 U/L (46-116) Total Protein 6.6 g/dL (6.4-8.2) Albumin 3.6 g/dL (3.4-5.0) Albumin/Globulin Ratio 1.2 (1.0-1.7) Prothrombin Time 12.8 SEC (11.7-14.0) Prothromb Time International Ratio 1.0 (0.8-1.1) Activated Partial Thromboplast Time 33 SEC (24-38) Images Images Chest x-ray with no acute changes Assessment/Plan Assessment/Plan 1. Acute renal failure. Creat. at 7.0. Seen by the renal service. Dialysis is being planned. 2. Hypertensive urgency. Patient has been restarted on baseline medications including Norvasc 10 mg a day, atenolol 50 mg a day and now clonidine 0.2 p.o. 3 times daily. Pressure has improved. Awaiting dialysis. Continuing to monitor. 3. Hyperlipidemia. Will check lab. 4. Diabetes mellitus. As per the primary service. Thank you for allowing us to participate in the care of your patient. REGLA NICHOLAS MD Nov 23, 2019 14:13
[2019-11-23] MEDS ORDERED: LIDOCAINE 1%/EPI 1:100,000 20 ML VIAL. INJ ONE (14:30)
[2019-11-23] MEDS ORDERED: MIDAZOLAM HCL/PF 2 MG/2 ML VIAL. IV ONE (14:30)
[2019-11-23] MEDS ORDERED: fentaNYL PF VIAL 100 MCG/2 ML VIAL IV ONE (14:30)
--- NOTE | 2019-11-23 14:39 | NUR ---
Patient to IR for tunneled HD placement, patient tolerated well with sedation. Vitals WNL, patient transferred to dialysis, report called to MARIANA Bustamante on [facility].
--- NOTE | 2019-11-23 15:23 | RAD ---
Procedure: Tunneled hemodialysis catheter placement 11/23/2019 1:19 PM Clinical Indication: RENAL FAILURE Sterility: All elements of maximal sterile barrier technique including the use of a cap, mask, sterile gown, sterile gloves, large sterile sheet, appropriate hand hygiene, and 2% chlorhexidine for cutaneous antisepsis (or acceptable alternative antiseptic per current guidelines) were followed for this procedure. Consent: The procedure was explained in its entirety to the patient or the patients designated traveling representative by a member of the treatment team, including a discussion of the risks, benefits and commonly accepted alternatives to the procedure, as well as the expected consequences of no therapy whatsoever. Discussion of the risks included, but was not limited to, those that are most frequent and those that are rare but possibly severe or life-threatening, as well as the possibility of unforeseen complications. Technique and Findings: Following informed consent, a timeout procedure was performed. The patient was prepped and draped in the usual sterile fashion. Ultrasound interrogation of the right neck revealed patency and compressibility of the right internal jugular vein. A 21-gauge micropuncture was then used to gain access to this vein under ultrasound guidance. A hard copy ultrasound image was recorded. The needle was exchanged over a wire for a 4 [place] sheath which was used to guide an guidewire into the IVC. The skin over the right anterior chest wall was copiously anesthetized with 1% Lidocaine and a small dermatotomy was made. A 23 cm tipped cuff palindrome tunneled hemodialysis catheter was then tunneled subcutaneously towards the neck dermatotomy and deployed through a large caliber peel-away sheath under fluoroscopic guidance such that the distal tip resided in the mid right atrium. Manual flow rates were assessed and found to be within normal limits. The catheter was then flushed, packed with Heparin, capped, and sutured to the skin. The neck dermatotomy was closed with Dermabond. No immediate complications were identified. Sedation: Conscious sedation was administered for 25 minutes. The patient was monitored by a qualified independent observer throughout the time of sedation. Please refer to the medical record for exact doses of medications utilized to achieve moderate sedation. Fluoroscopy time: 0.7 minutes Dose area product: 1 coates centimeters squared Impression: Tunneled hemodialysis catheter placement as described
[2019-11-23] MEDS: CYCLOBENZAPRINE 10 MG TABLET. PO SCH (21:06)
[2019-11-24 03:16] VITALS: BP 173/89
--- NOTE | 2019-11-24 03:17 | NUR ---
Pt refused 3 am vitals except for BP. Will continue to monitor pt.
[2019-11-24 03:57] LABS: BASO % 1 % (0-3); EOS # 0.2 x10^3/uL (0.0-0.7); EOS % 3 % (0-3); HEMATOCRIT 26.5 % (36.0-47.0); HEMOGLOBIN 9.1 g/dL (12.0-15.5); LYMPH # 3.1 x10^3/uL (1.0-4.8); LYMPH % 32 % (24-48); MEAN CORPUSCULAR HEMOGLOBIN 32 pg (25-35); MEAN CORPUSCULAR HGB CONC 34 g/dL (31-37); MEAN CORPUSCULAR VOLUME 94 fL (79-100); MONO # 0.7 x10^3/uL (0.0-1.1); MONO % 7 % (0-9); NEUT # 5.6 x10^3/uL (1.8-7.7); NEUT % 58 % (31-73); PLATELET COUNT 155 x10^3/uL (140-400); RED BLOOD COUNT 2.83 x10^6/uL (3.50-5.40); RED CELL DISTRIBUTION WIDTH 15.9 % (11.5-14.5); WHITE BLOOD COUNT 9.7 x10^3/uL (4.0-11.0)
[2019-11-24 04:22] LABS: ALBUMIN 3.3 g/dL (3.4-5.0); DIRECT BILIRUBIN 0.1 mg/dL (0.0-0.2); TOTAL BILIRUBIN 0.4 mg/dL (0.2-1.0); TOTAL PROTEIN 6.7 g/dL (6.4-8.2)
[2019-11-24 05:42] LABS: CREATININE 4.5 mg/dL (0.6-1.0); POTASSIUM 3.6 mmol/L (3.5-5.1)
[2019-11-24] MEDS: HEPARIN for SUB-Q USE 5,000 UNIT/ML VIAL. SQ SCH ×3 (06:22→22:03)
[2019-11-24 07:00] VITALS: BP 199/98
[2019-11-24] MEDS ORDERED: IV NORMAL SALINE 1000ML BAG 1,000 ML IV PRN ×2 (08:04)
[2019-11-24] MEDS: cloNIDine HCL 0.2 MG TABLET PO SCH ×3 (08:12→21:40)
[2019-11-24] MEDS ORDERED: ALBUMIN HUMAN 25% 200 ML IV PRN (08:15)
[2019-11-24] MEDS ORDERED: DIALYSIS PATIENT. MC PRN ×2 (08:15)
--- NOTE | 2019-11-24 11:39 | PDOC ---
PROGRESS NOTES Subjective Subjective Patient seen and examined Objective Objective Vital Signs Date Time Temp Pulse Resp B/P (MAP) Pulse Ox O2 Delivery O2 Flow Rate FiO2 11/24/19 08:12 68 199/98 11/24/19 08:00 Room Air 11/24/19 07:00 98.6 18 100 98.6 11/23/19 14:30 2.0 Intake and Output 11/24/19 07:00 Intake Total 700 ml Output Total 800 ml Balance -100 ml Intake Oral 700 ml Output Urine Total 800 ml # Voids 1 Physical Exam Abdomen: Normal bowel sounds Heart: Regular rate General: mild distress Lungs: Other (Mildly decreased breath sounds) Assessment Assessment Problems Medical Problems: (1) Acute renal failure Status: Acute (2) Acute UTI Status: Acute (3) Anemia Status: Acute (4) Hypertensive urgency Status: Acute 1. Acute renal failure. Hemodialysis yesterday. Creatinine has dropped from 7.0-4.3. Patient is on route for further dialysis this morning. 2. Hypertensive urgency. Patient's blood pressures improved but still elevated. Will adjust medications. Further dialysis pending. 3. Hyperlipidemia. Morning lab pending. 4. Diabetes mellitus. As per the primary service. Comment Review of Relevant I have reviewed the following items latrell (where applicable) has been applied. Labs Laboratory Tests Test 11/22/19 18:05 11/22/19 18:20 11/23/19 13:20 11/24/19 03:30 Urine Collection Type Void Urine Color Yellow Urine Clarity Clear Urine pH 5.5 (<5.0-8.0) Urine Specific [place] 1.015 (1.000-1.030) Urine Protein >=300 mg/dL (NEG-TRACE) Urine Glucose (UA) Negative mg/dL (NEG) Urine Ketones (Stick) Negative mg/dL (NEG) Urine Blood Negative (NEG) Urine Nitrite Negative (NEG) Urine Bilirubin Negative (NEG) Urine Urobilinogen Dipstick 0.2 mg/dL (0.2 mg/dL) Urine Leukocyte Esterase Small (NEG) Urine RBC 0 /HPF (0-2) Urine WBC 5-10 /HPF (0-4) Urine Squamous Epithelial Cells Many /LPF Urine Bacteria Few /HPF (0-FEW) Urine Mucus Marked /LPF White Blood Count 11.5 x10^3/uL (4.0-11.0) 9.7 x10^3/uL (4.0-11.0) Red Blood Count 2.65 x10^6/uL (3.50-5.40) 2.83 x10^6/uL (3.50-5.40) Hemoglobin 8.5 g/dL (12.0-15.5) 9.1 g/dL (12.0-15.5) Hematocrit 25.4 % (36.0-47.0) 26.5 % (36.0-47.0) Mean Corpuscular Volume 96 fL (79-100) 94 fL (79-100) Mean Corpuscular Hemoglobin 32 pg (25-35) 32 pg (25-35) Mean Corpuscular Hemoglobin Concent 34 g/dL (31-37) 34 g/dL (31-37) Red Cell Distribution Width 16.1 % (11.5-14.5) 15.9 % (11.5-14.5) Platelet Count 164 x10^3/uL (140-400) 155 x10^3/uL (140-400) Neutrophils (%) (Auto) 52 % (31-73) 58 % (31-73) Lymphocytes (%) (Auto) 38 % (24-48) 32 % (24-48) Monocytes (%) (Auto) 7 % (0-9) 7 % (0-9) Eosinophils (%) (Auto) 3 % (0-3) 3 % (0-3) Basophils (%) (Auto) 1 % (0-3) 1 % (0-3) Neutrophils # (Auto) 5.9 x10^3/uL (1.8-7.7) 5.6 x10^3/uL (1.8-7.7) Lymphocytes # (Auto) 4.3 x10^3/uL (1.0-4.8) 3.1 x10^3/uL (1.0-4.8) Monocytes # (Auto) 0.8 x10^3/uL (0.0-1.1) 0.7 x10^3/uL (0.0-1.1) Eosinophils # (Auto) 0.3 x10^3/uL (0.0-0.7) 0.2 x10^3/uL (0.0-0.7) Basophils # (Auto) 0.1 x10^3/uL (0.0-0.2) 0.0 x10^3/uL (0.0-0.2) Sodium Level 143 mmol/L (136-145) Potassium Level 4.2 mmol/L (3.5-5.1) Chloride Level 110 mmol/L (98-107) Carbon Dioxide Level 18 mmol/L (21-32) Anion Gap 15 (6-14) Blood Urea Nitrogen 57 mg/dL (7-20) Creatinine 7.0 mg/dL (0.6-1.0) Estimated GFR (Cockcroft-Gault) 7.2 BUN/Creatinine Ratio 8 (6-20) Glucose Level 71 mg/dL (70-99) Calcium Level 8.5 mg/dL (8.5-10.1) Total Bilirubin 0.1 mg/dL (0.2-1.0) 0.4 mg/dL (0.2-1.0) Aspartate Amino Transf (AST/SGOT) 12 U/L (15-37) 8 U/L (15-37) Alanine Aminotransferase (ALT/SGPT) 9 U/L (14-59) 11 U/L (14-59) Alkaline Phosphatase 59 U/L (46-116) 56 U/L (46-116) Total Protein 6.6 g/dL (6.4-8.2) 6.7 g/dL (6.4-8.2) Albumin 3.6 g/dL (3.4-5.0) 3.3 g/dL (3.4-5.0) Albumin/Globulin Ratio 1.2 (1.0-1.7) Prothrombin Time 12.8 SEC (11.7-14.0) Prothromb Time International Ratio 1.0 (0.8-1.1) Activated Partial Thromboplast Time 33 SEC (24-38) Hepatitis B Surface Antigen Nonreactive (Nonreactive) Hepatitis B Surface Antibody, Quant <3.1 mIU/mL (Immunity>9.9) Ferritin 272 ng/mL (8-252) Direct Bilirubin 0.1 mg/dL (0.0-0.2) Triglycerides Level 98 mg/dL (0-150) Cholesterol Level 124 mg/dL (0-200) LDL Cholesterol, Calculated 63 mg/dL (0-100) VLDL Cholesterol, Calculated 20 mg/dL (0-40) Non-HDL Cholesterol Calculated 83 mg/dL (0-129) HDL Cholesterol 41 mg/dL (40-60) Cholesterol/HDL Ratio 3.0 Test 11/24/19 05:00 Sodium Level 140 mmol/L (136-145) Potassium Level 3.6 mmol/L (3.5-5.1) Chloride Level 104 mmol/L (98-107) Carbon Dioxide Level 26 mmol/L (21-32) Anion Gap 10 (6-14) Blood Urea Nitrogen 27 mg/dL (7-20) Creatinine 4.5 mg/dL (0.6-1.0) Estimated GFR (Cockcroft-Gault) 12.0 Glucose Level 98 mg/dL (70-99) Calcium Level 9.0 mg/dL (8.5-10.1) Iron Level 30 ug/dL (50-170) Total Iron Binding Capacity 227 ug/dL (250-450) Iron Saturation 13 % (15-34) Laboratory Tests Test 11/23/19 13:20 11/24/19 03:30 11/24/19 05:00 Prothrombin Time 12.8 SEC (11.7-14.0) Prothromb Time International Ratio 1.0 (0.8-1.1) Activated Partial Thromboplast Time 33 SEC (24-38) Hepatitis B Surface Antigen Nonreactive (Nonreactive) Hepatitis B Surface Antibody, Quant <3.1 mIU/mL (Immunity>9.9) White Blood Count 9.7 x10^3/uL (4.0-11.0) Red Blood Count 2.83 x10^6/uL (3.50-5.40) Hemoglobin 9.1 g/dL (12.0-15.5) Hematocrit 26.5 % (36.0-47.0) Mean Corpuscular Volume 94 fL (79-100) Mean Corpuscular Hemoglobin 32 pg (25-35) Mean Corpuscular Hemoglobin Concent 34 g/dL (31-37) Red Cell Distribution Width 15.9 % (11.5-14.5) Platelet Count 155 x10^3/uL (140-400) Neutrophils (%) (Auto) 58 % (31-73) Lymphocytes (%) (Auto) 32 % (24-48) Monocytes (%) (Auto) 7 % (0-9) Eosinophils (%) (Auto) 3 % (0-3) Basophils (%) (Auto) 1 % (0-3) Neutrophils # (Auto) 5.6 x10^3/uL (1.8-7.7) Lymphocytes # (Auto) 3.1 x10^3/uL (1.0-4.8) Monocytes # (Auto) 0.7 x10^3/uL (0.0-1.1) Eosinophils # (Auto) 0.2 x10^3/uL (0.0-0.7) Basophils # (Auto) 0.0 x10^3/uL (0.0-0.2) Ferritin 272 ng/mL (8-252) Total Bilirubin 0.4 mg/dL (0.2-1.0) Direct Bilirubin 0.1 mg/dL (0.0-0.2) Aspartate Amino Transf (AST/SGOT) 8 U/L (15-37) Alanine Aminotransferase (ALT/SGPT) 11 U/L (14-59) Alkaline Phosphatase 56 U/L (46-116) Total Protein 6.7 g/dL (6.4-8.2) Albumin 3.3 g/dL (3.4-5.0) Triglycerides Level 98 mg/dL (0-150) Cholesterol Level 124 mg/dL (0-200) LDL Cholesterol, Calculated 63 mg/dL (0-100) VLDL Cholesterol, Calculated 20 mg/dL (0-40) Non-HDL Cholesterol Calculated 83 mg/dL (0-129) HDL Cholesterol 41 mg/dL (40-60) Cholesterol/HDL Ratio 3.0 Sodium Level 140 mmol/L (136-145) Potassium Level 3.6 mmol/L (3.5-5.1) Chloride Level 104 mmol/L (98-107) Carbon Dioxide Level 26 mmol/L (21-32) Anion Gap 10 (6-14) Blood Urea Nitrogen 27 mg/dL (7-20) Creatinine 4.5 mg/dL (0.6-1.0) Estimated GFR (Cockcroft-Gault) 12.0 Glucose Level 98 mg/dL (70-99) Calcium Level 9.0 mg/dL (8.5-10.1) Iron Level 30 ug/dL (50-170) Total Iron Binding Capacity 227 ug/dL (250-450) Iron Saturation 13 % (15-34) Medications Current Medications Sodium Chloride 1,000 ml @ 500 mls/hr 1X ONCE IV Last administered on 11/22/19at 18:15; Start 11/22/19 at 18:15; Stop 11/22/19 at 20:14; Status DC Hydralazine HCl (Apresoline Inj) 10 mg 1X ONCE IVP Last administered on 11/22/19at 18:45; Start 11/22/19 at 18:45; Stop 11/22/19 at 18:46; Status DC Ceftriaxone Sodium (Rocephin) 1 gm 1X ONCE IVP Last administered on 11/22/19at 19:00; Start 11/22/19 at 19:00; Stop 11/22/19 at 19:01; Status DC Ondansetron HCl (Zofran) 4 mg PRN Q8HRS PRN IV NAUSEA/VOMITING; Start 11/22/19 at 19:15; Stop 11/23/19 at 19:14; Status DC Labetalol HCl (Normodyne Iv Push) 20 mg 1X ONCE IVP Last administered on 11/22/19at 20:00; Start 11/22/19 at 20:00; Stop 11/22/19 at 20:01; Status DC Hydralazine HCl (Apresoline Inj) 20 mg 1X ONCE IVP Last administered on 11/22/19at 21:52; Start 11/22/19 at 22:00; Stop 11/22/19 at 22:01; Status DC Clonidine HCl (Catapres Tts-2) 1 patch WEEKLY TD Last administered on 11/22/19at 23:08; Start 11/22/19 at 23:30 Hydralazine HCl (Apresoline Inj) 20 mg PRN Q3HRS PRN IVP ELEVATED BP, SEE COMMENTS Last administered on 11/23/19at 10:55; Start 11/22/19 at 23:00 Acetaminophen/ Hydrocodone Bitart (Lortab 5/325) 1 tab PRN Q4HRS PRN PO PAIN Last administered on 11/23/19at 13:19; Start 11/23/19 at 08:30 Albuterol Sulfate (Ventolin Neb Soln) 2.5 mg PRN Q6HRS PRN INH SHORTNESS OF BREATH; Start 11/23/19 at 09:00 Amlodipine Besylate (Norvasc) 10 mg DAILY PO Last administered on 11/23/19at 10:47; Start 11/23/19 at 09:00 Atenolol (Tenormin) 50 mg DAILY PO Last administered on 11/23/19at 10:48; Start 11/23/19 at 09:00 Clonidine HCl (Catapres) 0.2 mg TID PO Last administered on 11/24/19at 08:12; Start 11/23/19 at 09:00 Cyclobenzaprine HCl (Flexeril) 10 mg QHS PO Last administered on 11/23/19at 21:06; Start 11/23/19 at 21:00 Ergocalciferol (Vitamin D2) 50,000 unit Nix PO ; Start 11/25/19 at 09:00 Hydralazine HCl (Apresoline) 25 mg BID PO Last administered on 11/23/19at 21:06; Start 11/23/19 at 09:00 Heparin Sodium (Porcine) (Heparin Sodium) 5,000 unit Q8HRS SQ Last administered on 11/24/19at 06:22; Start 11/23/19 at 14:00 Sodium Chloride 1,000 ml @ 1,000 mls/hr Q1H PRN IV hypotension; Start 11/23/19 at 11:30; Stop 11/23/19 at 17:29; Status DC Albumin Human 200 ml @ 200 mls/hr 1X PRN PRN IV Hypotension; Start 11/23/19 at 11:30; Stop 11/23/19 at 17:29; Status DC Diphenhydramine HCl (Benadryl) 25 mg 1X PRN PRN IV ITCHING; Start 11/23/19 at 11:30; Stop 11/24/19 at 11:29; Status DC Diphenhydramine HCl (Benadryl) 25 mg 1X PRN PRN IV ITCHING; Start 11/23/19 at 11:30; Stop 11/24/19 at 11:29; Status DC Sodium Chloride (Normal Saline Flush) 10 ml 1X PRN PRN IV AP catheter pack; Start 11/23/19 at 11:30; Stop 11/24/19 at 11:29; Status DC Sodium Chloride (Normal Saline Flush) 10 ml 1X PRN PRN IV KNIFER UP catheter pack; Start 11/23/19 at 11:30; Stop 11/24/19 at 11:29; Status DC Sodium Chloride 1,000 ml @ 400 mls/hr Q2H30M PRN IV PATENCY; Start 11/23/19 at 11:30; Stop 11/23/19 at 23:29; Status DC Info (PHARMACY MONITORING -- do not chart) 1 each PRN DAILY PRN MC SEE COMMENTS; Start 11/23/19 at 11:30 Lidocaine/ Epinephrine (LIDOCAINE 1%-EPI 1:100,000 Multi-Dose) 20 ml STK-MED ONCE .ROUTE ; Start 11/23/19 at 12:44; Stop 11/23/19 at 12:44; Status DC Cefazolin Sodium (Ancef) 1 gm STK-MED ONCE IVP ; Start 11/23/19 at 14:05; Stop 11/23/19 at 14:06; Status DC Midazolam HCl (Versed) 2 mg STK-MED ONCE .ROUTE ; Start 11/23/19 at 14:05; Stop 11/23/19 at 14:06; Status DC Fentanyl Citrate (Fentanyl 2ml Vial) 100 mcg STK-MED ONCE .ROUTE ; Start 0 at 14:05; Stop 11/23/19 at 14:06; Status DC Midazolam HCl (Versed) 2 mg 1X ONCE IV Last administered on 11/23/19at 14:30; Start 11/23/19 at 14:30; Stop 11/23/19 at 14:31; Status DC Fentanyl Citrate (Fentanyl 2ml Vial) 100 mcg 1X ONCE IV Last administered on 11/23/19at 14:30; Start 11/23/19 at 14:30; Stop 11/23/19 at 14:31; Status DC Lidocaine/ Epinephrine (LIDOCAINE 1%-EPI 1:100,000 Multi-Dose) 20 ml 1X ONCE INJ Last administered on 11/23/19at 14:30; Start 11/23/19 at 14:30; Stop 11/23/19 at 14:31; Status DC Cefazolin Sodium (Ancef) 1 gm 1X ONCE IVP Last administered on 11/23/19at 14:30; Start 11/23/19 at 14:30; Stop 11/23/19 at 14:31; Status DC Sodium Chloride 1,000 ml @ 1,000 mls/hr Q1H PRN IV hypotension; Start 11/24/19 at 08:04; Stop 11/24/19 at 14:03 Albumin Human 200 ml @ 200 mls/hr 1X PRN PRN IV Hypotension; Start 11/24/19 at 08:15; Stop 11/24/19 at 14:14 Sodium Chloride 1,000 ml @ 400 mls/hr Q2H30M PRN IV PATENCY; Start 11/24/19 at 08:04; Stop 11/24/19 at 20:03 Info (PHARMACY MONITORING -- do not chart) 1 each PRN DAILY PRN MC SEE COMMENTS; Start 11/24/19 at 08:15 Info (PHARMACY MONITORING -- do not chart) 1 each PRN DAILY PRN MC SEE COMMENTS; Start 11/24/19 at 08:15; Status UNV Active Scripts Active Reported Vitamin D2 (Ergocalciferol (Vitamin D2)) 1,250 Mcg Capsule 1,250 Mcg PO QSU Atenolol 50 Mg Tablet 50 Mg PO DAILY Hydralazine Hcl 25 Mg Tablet 25 Mg PO BID Benicar (Olmesartan Medoxomil) 40 Mg Tablet 40 Mg PO DAILY PRN Amlodipine Besylate 10 Mg Tablet 10 Mg PO DAILY Clonidine Hcl 0.2 Mg Tablet 1 Tab PO TID Cyclobenzaprine Hcl 10 Mg Tablet 1 Tab PO QHS Proair Hfa Inhaler (Albuterol Sulfate) 8.5 Gm Hfa.aer.ad 1 Puff INH PRN Q6HRS PRN Hydrocodone-Apap 5-325 (Hydrocodone Bit/Acetaminophen) 1 Each Tablet 1 Tab PO PRN Q8HRS PRN Vitals/I & O Vital Sign - Last 24 Hours 11/23/19 11/23/19 11/23/19 11/23/19 12:34 13:19 14:19 14:30 Resp 12 Pulse Ox 98 98 98 100 O2 Delivery Room Air Room Air Room Air Nasal Cannula O2 Flow Rate 2.0 11/23/19 11/23/19 11/23/19 11/23/19 17:50 19:00 20:00 21:06 Temp 98.3 98.3 Pulse 63 65 Resp 18 B/P (MAP) 180/99 (126) 185/93 Pulse Ox 99 O2 Delivery Room Air Room Air Room Air 11/23/19 11/23/19 11/24/19 11/24/19 21:07 22:45 03:16 07:00 Temp 97.7 98.6 97.7 98.6 Pulse 66 67 67 Resp 17 18 B/P (MAP) 185/93 179/97 (124) 173/89 (117) 199/98 (131) Pulse Ox 100 100 O2 Delivery Room Air Room Air 11/24/19 11/24/19 08:00 08:12 Pulse 68 B/P (MAP) 199/98 O2 Delivery Room Air Intake and Output 11/23/19 11/23/19 11/24/19 15:00 23:00 07:00 Intake Total 500 ml 200 ml Output Total 800 ml Balance 500 ml -600 ml Justicifation of Admission Dx: Justifications for Admission: Justification of Admission Dx: Yes Acute Renal Failure: Serum Cr > 4mg/dL REGLA NICHOLAS MD Nov 24, 2019 11:39
--- NOTE | 2019-11-24 12:36 | PDOC ---
PROGRESS NOTES Chief Complaint Chief Complaint ASSESSMENT HTN Urgency Progressive Renal Failure CKD stage 4 secondary to likely HTN Nephropathy Anemia of CKD PLAN restartED home BP meds, prn BALLARD nephro consult for HD lytes stable daily BMP dvt ppx full code Vitals Vitals Vital Signs Date Time Temp Pulse Resp B/P (MAP) Pulse Ox O2 Delivery O2 Flow Rate FiO2 11/24/19 08:12 68 199/98 11/24/19 08:00 Room Air 11/24/19 07:00 98.6 18 100 98.6 11/23/19 14:30 2.0 Physical Exam General: mild distress Heart: Regular rate Abdomen: Normal bowel sounds Labs LABS Laboratory Tests Test 11/23/19 13:20 11/24/19 03:30 11/24/19 05:00 11/24/19 12:07 Prothrombin Time 12.8 SEC (11.7-14.0) Prothromb Time International Ratio 1.0 (0.8-1.1) Activated Partial Thromboplast Time 33 SEC (24-38) Hepatitis B Surface Antigen Nonreactive (Nonreactive) Hepatitis B Surface Antibody, Quant <3.1 mIU/mL (Immunity>9.9) White Blood Count 9.7 x10^3/uL (4.0-11.0) Red Blood Count 2.83 x10^6/uL (3.50-5.40) Hemoglobin 9.1 g/dL (12.0-15.5) Hematocrit 26.5 % (36.0-47.0) Mean Corpuscular Volume 94 fL (79-100) Mean Corpuscular Hemoglobin 32 pg (25-35) Mean Corpuscular Hemoglobin Concent 34 g/dL (31-37) Red Cell Distribution Width 15.9 % (11.5-14.5) Platelet Count 155 x10^3/uL (140-400) Neutrophils (%) (Auto) 58 % (31-73) Lymphocytes (%) (Auto) 32 % (24-48) Monocytes (%) (Auto) 7 % (0-9) Eosinophils (%) (Auto) 3 % (0-3) Basophils (%) (Auto) 1 % (0-3) Neutrophils # (Auto) 5.6 x10^3/uL (1.8-7.7) Lymphocytes # (Auto) 3.1 x10^3/uL (1.0-4.8) Monocytes # (Auto) 0.7 x10^3/uL (0.0-1.1) Eosinophils # (Auto) 0.2 x10^3/uL (0.0-0.7) Basophils # (Auto) 0.0 x10^3/uL (0.0-0.2) Ferritin 272 ng/mL (8-252) Total Bilirubin 0.4 mg/dL (0.2-1.0) Direct Bilirubin 0.1 mg/dL (0.0-0.2) Aspartate Amino Transf (AST/SGOT) 8 U/L (15-37) Alanine Aminotransferase (ALT/SGPT) 11 U/L (14-59) Alkaline Phosphatase 56 U/L (46-116) Total Protein 6.7 g/dL (6.4-8.2) Albumin 3.3 g/dL (3.4-5.0) Triglycerides Level 98 mg/dL (0-150) Cholesterol Level 124 mg/dL (0-200) LDL Cholesterol, Calculated 63 mg/dL (0-100) VLDL Cholesterol, Calculated 20 mg/dL (0-40) Non-HDL Cholesterol Calculated 83 mg/dL (0-129) HDL Cholesterol 41 mg/dL (40-60) Cholesterol/HDL Ratio 3.0 Sodium Level 140 mmol/L (136-145) Potassium Level 3.6 mmol/L (3.5-5.1) Chloride Level 104 mmol/L (98-107) Carbon Dioxide Level 26 mmol/L (21-32) Anion Gap 10 (6-14) Blood Urea Nitrogen 27 mg/dL (7-20) Creatinine 4.5 mg/dL (0.6-1.0) Estimated GFR (Cockcroft-Gault) 12.0 Glucose Level 98 mg/dL (70-99) Calcium Level 9.0 mg/dL (8.5-10.1) Iron Level 30 ug/dL (50-170) Total Iron Binding Capacity 227 ug/dL (250-450) Iron Saturation 13 % (15-34) Glucose (Fingerstick) 94 mg/dL (70-99) Assessment and Plan Assessmemt and Plan Problems Medical Problems: (1) Acute renal failure Status: Acute (2) Acute UTI Status: Acute (3) Anemia Status: Acute (4) Hypertensive urgency Status: Acute Comment Review of Relevant I have reviewed the following items latrell (where applicable) has been applied. Labs Laboratory Tests Test 11/22/19 18:05 11/22/19 18:20 11/23/19 13:20 11/24/19 03:30 Urine Collection Type Void Urine Color Yellow Urine Clarity Clear Urine pH 5.5 (<5.0-8.0) Urine Specific [place] 1.015 (1.000-1.030) Urine Protein >=300 mg/dL (NEG-TRACE) Urine Glucose (UA) Negative mg/dL (NEG) Urine Ketones (Stick) Negative mg/dL (NEG) Urine Blood Negative (NEG) Urine Nitrite Negative (NEG) Urine Bilirubin Negative (NEG) Urine Urobilinogen Dipstick 0.2 mg/dL (0.2 mg/dL) Urine Leukocyte Esterase Small (NEG) Urine RBC 0 /HPF (0-2) Urine WBC 5-10 /HPF (0-4) Urine Squamous Epithelial Cells Many /LPF Urine Bacteria Few /HPF (0-FEW) Urine Mucus Marked /LPF White Blood Count 11.5 x10^3/uL (4.0-11.0) 9.7 x10^3/uL (4.0-11.0) Red Blood Count 2.65 x10^6/uL (3.50-5.40) 2.83 x10^6/uL (3.50-5.40) Hemoglobin 8.5 g/dL (12.0-15.5) 9.1 g/dL (12.0-15.5) Hematocrit 25.4 % (36.0-47.0) 26.5 % (36.0-47.0) Mean Corpuscular Volume 96 fL (79-100) 94 fL (79-100) Mean Corpuscular Hemoglobin 32 pg (25-35) 32 pg (25-35) Mean Corpuscular Hemoglobin Concent 34 g/dL (31-37) 34 g/dL (31-37) Red Cell Distribution Width 16.1 % (11.5-14.5) 15.9 % (11.5-14.5) Platelet Count 164 x10^3/uL (140-400) 155 x10^3/uL (140-400) Neutrophils (%) (Auto) 52 % (31-73) 58 % (31-73) Lymphocytes (%) (Auto) 38 % (24-48) 32 % (24-48) Monocytes (%) (Auto) 7 % (0-9) 7 % (0-9) Eosinophils (%) (Auto) 3 % (0-3) 3 % (0-3) Basophils (%) (Auto) 1 % (0-3) 1 % (0-3) Neutrophils # (Auto) 5.9 x10^3/uL (1.8-7.7) 5.6 x10^3/uL (1.8-7.7) Lymphocytes # (Auto) 4.3 x10^3/uL (1.0-4.8) 3.1 x10^3/uL (1.0-4.8) Monocytes # (Auto) 0.8 x10^3/uL (0.0-1.1) 0.7 x10^3/uL (0.0-1.1) Eosinophils # (Auto) 0.3 x10^3/uL (0.0-0.7) 0.2 x10^3/uL (0.0-0.7) Basophils # (Auto) 0.1 x10^3/uL (0.0-0.2) 0.0 x10^3/uL (0.0-0.2) Sodium Level 143 mmol/L (136-145) Potassium Level 4.2 mmol/L (3.5-5.1) Chloride Level 110 mmol/L (98-107) Carbon Dioxide Level 18 mmol/L (21-32) Anion Gap 15 (6-14) Blood Urea Nitrogen 57 mg/dL (7-20) Creatinine 7.0 mg/dL (0.6-1.0) Estimated GFR (Cockcroft-Gault) 7.2 BUN/Creatinine Ratio 8 (6-20) Glucose Level 71 mg/dL (70-99) Calcium Level 8.5 mg/dL (8.5-10.1) Total Bilirubin 0.1 mg/dL (0.2-1.0) 0.4 mg/dL (0.2-1.0) Aspartate Amino Transf (AST/SGOT) 12 U/L (15-37) 8 U/L (15-37) Alanine Aminotransferase (ALT/SGPT) 9 U/L (14-59) 11 U/L (14-59) Alkaline Phosphatase 59 U/L (46-116) 56 U/L (46-116) Total Protein 6.6 g/dL (6.4-8.2) 6.7 g/dL (6.4-8.2) Albumin 3.6 g/dL (3.4-5.0) 3.3 g/dL (3.4-5.0) Albumin/Globulin Ratio 1.2 (1.0-1.7) Prothrombin Time 12.8 SEC (11.7-14.0) Prothromb Time International Ratio 1.0 (0.8-1.1) Activated Partial Thromboplast Time 33 SEC (24-38) Hepatitis B Surface Antigen Nonreactive (Nonreactive) Hepatitis B Surface Antibody, Quant <3.1 mIU/mL (Immunity>9.9) Ferritin 272 ng/mL (8-252) Direct Bilirubin 0.1 mg/dL (0.0-0.2) Triglycerides Level 98 mg/dL (0-150) Cholesterol Level 124 mg/dL (0-200) LDL Cholesterol, Calculated 63 mg/dL (0-100) VLDL Cholesterol, Calculated 20 mg/dL (0-40) Non-HDL Cholesterol Calculated 83 mg/dL (0-129) HDL Cholesterol 41 mg/dL (40-60) Cholesterol/HDL Ratio 3.0 Test 11/24/19 05:00 11/24/19 12:07 Sodium Level 140 mmol/L (136-145) Potassium Level 3.6 mmol/L (3.5-5.1) Chloride Level 104 mmol/L (98-107) Carbon Dioxide Level 26 mmol/L (21-32) Anion Gap 10 (6-14) Blood Urea Nitrogen 27 mg/dL (7-20) Creatinine 4.5 mg/dL (0.6-1.0) Estimated GFR (Cockcroft-Gault) 12.0 Glucose Level 98 mg/dL (70-99) Calcium Level 9.0 mg/dL (8.5-10.1) Iron Level 30 ug/dL (50-170) Total Iron Binding Capacity 227 ug/dL (250-450) Iron Saturation 13 % (15-34) Glucose (Fingerstick) 94 mg/dL (70-99) Laboratory Tests Test 11/23/19 13:20 11/24/19 03:30 11/24/19 05:00 11/24/19 12:07 Prothrombin Time 12.8 SEC (11.7-14.0) Prothromb Time International Ratio 1.0 (0.8-1.1) Activated Partial Thromboplast Time 33 SEC (24-38) Hepatitis B Surface Antigen Nonreactive (Nonreactive) Hepatitis B Surface Antibody, Quant <3.1 mIU/mL (Immunity>9.9) White Blood Count 9.7 x10^3/uL (4.0-11.0) Red Blood Count 2.83 x10^6/uL (3.50-5.40) Hemoglobin 9.1 g/dL (12.0-15.5) Hematocrit 26.5 % (36.0-47.0) Mean Corpuscular Volume 94 fL (79-100) Mean Corpuscular Hemoglobin 32 pg (25-35) Mean Corpuscular Hemoglobin Concent 34 g/dL (31-37) Red Cell Distribution Width 15.9 % (11.5-14.5) Platelet Count 155 x10^3/uL (140-400) Neutrophils (%) (Auto) 58 % (31-73) Lymphocytes (%) (Auto) 32 % (24-48) Monocytes (%) (Auto) 7 % (0-9) Eosinophils (%) (Auto) 3 % (0-3) Basophils (%) (Auto) 1 % (0-3) Neutrophils # (Auto) 5.6 x10^3/uL (1.8-7.7) Lymphocytes # (Auto) 3.1 x10^3/uL (1.0-4.8) Monocytes # (Auto) 0.7 x10^3/uL (0.0-1.1) Eosinophils # (Auto) 0.2 x10^3/uL (0.0-0.7) Basophils # (Auto) 0.0 x10^3/uL (0.0-0.2) Ferritin 272 ng/mL (8-252) Total Bilirubin 0.4 mg/dL (0.2-1.0) Direct Bilirubin 0.1 mg/dL (0.0-0.2) Aspartate Amino Transf (AST/SGOT) 8 U/L (15-37) Alanine Aminotransferase (ALT/SGPT) 11 U/L (14-59) Alkaline Phosphatase 56 U/L (46-116) Total Protein 6.7 g/dL (6.4-8.2) Albumin 3.3 g/dL (3.4-5.0) Triglycerides Level 98 mg/dL (0-150) Cholesterol Level 124 mg/dL (0-200) LDL Cholesterol, Calculated 63 mg/dL (0-100) VLDL Cholesterol, Calculated 20 mg/dL (0-40) Non-HDL Cholesterol Calculated 83 mg/dL (0-129) HDL Cholesterol 41 mg/dL (40-60) Cholesterol/HDL Ratio 3.0 Sodium Level 140 mmol/L (136-145) Potassium Level 3.6 mmol/L (3.5-5.1) Chloride Level 104 mmol/L (98-107) Carbon Dioxide Level 26 mmol/L (21-32) Anion Gap 10 (6-14) Blood Urea Nitrogen 27 mg/dL (7-20) Creatinine 4.5 mg/dL (0.6-1.0) Estimated GFR (Cockcroft-Gault) 12.0 Glucose Level 98 mg/dL (70-99) Calcium Level 9.0 mg/dL (8.5-10.1) Iron Level 30 ug/dL (50-170) Total Iron Binding Capacity 227 ug/dL (250-450) Iron Saturation 13 % (15-34) Glucose (Fingerstick) 94 mg/dL (70-99) Medications Current Medications Sodium Chloride 1,000 ml @ 500 mls/hr 1X ONCE IV Last administered on 11/22/19at 18:15; Start 11/22/19 at 18:15; Stop 11/22/19 at 20:14; Status DC Hydralazine HCl (Apresoline Inj) 10 mg 1X ONCE IVP Last administered on 11/22/19at 18:45; Start 11/22/19 at 18:45; Stop 11/22/19 at 18:46; Status DC Ceftriaxone Sodium (Rocephin) 1 gm 1X ONCE IVP Last administered on 11/22/19at 19:00; Start 11/22/19 at 19:00; Stop 11/22/19 at 19:01; Status DC Ondansetron HCl (Zofran) 4 mg PRN Q8HRS PRN IV NAUSEA/VOMITING; Start 11/22/19 at 19:15; Stop 11/23/19 at 19:14; Status DC Labetalol HCl (Normodyne Iv Push) 20 mg 1X ONCE IVP Last administered on 11/22/19at 20:00; Start 11/22/19 at 20:00; Stop 11/22/19 at 20:01; Status DC Hydralazine HCl (Apresoline Inj) 20 mg 1X ONCE IVP Last administered on 11/22/19at 21:52; Start 11/22/19 at 22:00; Stop 11/22/19 at 22:01; Status DC Clonidine HCl (Catapres Tts-2) 1 patch WEEKLY TD Last administered on 11/22/19at 23:08; Start 11/22/19 at 23:30 Hydralazine HCl (Apresoline Inj) 20 mg PRN Q3HRS PRN IVP ELEVATED BP, SEE COMMENTS Last administered on 11/23/19at 10:55; Start 11/22/19 at 23:00 Acetaminophen/ Hydrocodone Bitart (Lortab 5/325) 1 tab PRN Q4HRS PRN PO PAIN Last administered on 11/23/19at 13:19; Start 11/23/19 at 08:30 Albuterol Sulfate (Ventolin Neb Soln) 2.5 mg PRN Q6HRS PRN INH SHORTNESS OF BREATH; Start 11/23/19 at 09:00 Amlodipine Besylate (Norvasc) 10 mg DAILY PO Last administered on 11/23/19at 10:47; Start 11/23/19 at 09:00 Atenolol (Tenormin) 50 mg DAILY PO Last administered on 11/23/19at 10:48; Start 11/23/19 at 09:00 Clonidine HCl (Catapres) 0.2 mg TID PO Last administered on 11/24/19at 08:12; Start 11/23/19 at 09:00 Cyclobenzaprine HCl (Flexeril) 10 mg QHS PO Last administered on 11/23/19at 21:06; Start 11/23/19 at 21:00 Ergocalciferol (Vitamin D2) 50,000 unit Nix PO ; Start 11/25/19 at 09:00 Hydralazine HCl (Apresoline) 25 mg BID PO Last administered on 11/23/19at 21:06; Start 11/23/19 at 09:00 Heparin Sodium (Porcine) (Heparin Sodium) 5,000 unit Q8HRS SQ Last administered on 11/24/19at 06:22; Start 11/23/19 at 14:00 Sodium Chloride 1,000 ml @ 1,000 mls/hr Q1H PRN IV hypotension; Start 11/23/19 at 11:30; Stop 11/23/19 at 17:29; Status DC Albumin Human 200 ml @ 200 mls/hr 1X PRN PRN IV Hypotension; Start 11/23/19 at 11:30; Stop 11/23/19 at 17:29; Status DC Diphenhydramine HCl (Benadryl) 25 mg 1X PRN PRN IV ITCHING; Start 11/23/19 at 11:30; Stop 11/24/19 at 11:29; Status DC Diphenhydramine HCl (Benadryl) 25 mg 1X PRN PRN IV ITCHING; Start 11/23/19 at 11:30; Stop 11/24/19 at 11:29; Status DC Sodium Chloride (Normal Saline Flush) 10 ml 1X PRN PRN IV AP catheter pack; St art 11/23/19 at 11:30; Stop 11/24/19 at 11:29; Status DC Sodium Chloride (Normal Saline Flush) 10 ml 1X PRN PRN IV CASE REPAIRER catheter pack; Start 11/23/19 at 11:30; Stop 11/24/19 at 11:29; Status DC Sodium Chloride 1,000 ml @ 400 mls/hr Q2H30M PRN IV PATENCY; Start 11/23/19 at 11:30; Stop 11/23/19 at 23:29; Status DC Info (PHARMACY MONITORING -- do not chart) 1 each PRN DAILY PRN MC SEE COMMENTS; Start 11/23/19 at 11:30 Lidocaine/ Epinephrine (LIDOCAINE 1%-EPI 1:100,000 Multi-Dose) 20 ml STK-MED ONCE .ROUTE ; Start 11/23/19 at 12:44; Stop 11/23/19 at 12:44; Status DC Cefazolin Sodium (Ancef) 1 gm STK-MED ONCE IVP ; Start 11/23/19 at 14:05; Stop 11/23/19 at 14:06; Status DC Midazolam HCl (Versed) 2 mg STK-MED ONCE .ROUTE ; Start 11/23/19 at 14:05; Stop 11/23/19 at 14:06; Status DC Fentanyl Citrate (Fentanyl 2ml Vial) 100 mcg STK-MED ONCE .ROUTE ; Start 11/23/19 at 14:05; Stop 11/23/19 at 14:06; Status DC Midazolam HCl (Versed) 2 mg 1X ONCE IV Last administered on 11/23/19at 14:30; Start 11/23/19 at 14:30; Stop 11/23/19 at 14:31; Status DC Fentanyl Citrate (Fentanyl 2ml Vial) 100 mcg 1X ONCE IV Last administered on 11/23/19at 14:30; Start 11/23/19 at 14:30; Stop 11/23/19 at 14:31; Status DC Lidocaine/ Epinephrine (LIDOCAINE 1%-EPI 1:100,000 Multi-Dose) 20 ml 1X ONCE INJ Last administered on 11/23/19at 14:30; Start 11/23/19 at 14:30; Stop 11/23/19 at 14:31; Status DC Cefazolin Sodium (Ancef) 1 gm 1X ONCE IVP Last administered on 11/23/19at 14:30; Start 11/23/19 at 14:30; Stop 11/23/19 at 14:31; Status DC Sodium Chloride 1,000 ml @ 1,000 mls/hr Q1H PRN IV hypotension; Start 11/24/19 at 08:04; Stop 11/24/19 at 14:03 Albumin Human 200 ml @ 200 mls/hr 1X PRN PRN IV Hypotension; Start 11/24/19 at 08:15; Stop 11/24/19 at 14:14 Sodium Chloride 1,000 ml @ 400 mls/hr Q2H30M PRN IV PATENCY; Start 11/24/19 at 08:04; Stop 11/24/19 at 20:03 Info (PHARMACY MONITORING -- do not chart) 1 each PRN DAILY PRN MC SEE COMMENTS; Start 11/24/19 at 08:15 Info (PHARMACY MONITORING -- do not chart) 1 each PRN DAILY PRN MC SEE COMMENTS; Start 11/24/19 at 08:15; Status UNV Active Scripts Active Reported Vitamin D2 (Ergocalciferol (Vitamin D2)) 1,250 Mcg Capsule 1,250 Mcg PO QSU Atenolol 50 Mg Tablet 50 Mg PO DAILY Hydralazine Hcl 25 Mg Tablet 25 Mg PO BID Benicar (Olmesartan Medoxomil) 40 Mg Tablet 40 Mg PO DAILY PRN Amlodipine Besylate 10 Mg Tablet 10 Mg PO DAILY Clonidine Hcl 0.2 Mg Tablet 1 Tab PO TID Cyclobenzaprine Hcl 10 Mg Tablet 1 Tab PO QHS Proair Hfa Inhaler (Albuterol Sulfate) 8.5 Gm Hfa.aer.ad 1 Puff INH PRN Q6HRS PRN Hydrocodone-Apap 5-325 (Hydrocodone Bit/Acetaminophen) 1 Each Tablet 1 Tab PO PRN Q8HRS PRN Vitals/I & O Vital Sign - Last 24 Hours 11/23/19 11/23/19 11/23/19 11/23/19 13:19 14:19 14:30 17:50 Temp 98.3 98.3 Pulse 63 Resp 12 18 B/P (MAP) 180/99 (126) Pulse Ox 98 98 100 99 O2 Delivery Room Air Room Air Nasal Cannula Room Air O2 Flow Rate 2.0 11/23/19 11/23/19 11/23/19 11/23/19 19:00 20:00 21:06 21:07 Pulse 65 66 B/P (MAP) 185/93 185/93 O2 Delivery Room Air Room Air 11/23/19 11/24/19 11/24/19 11/24/19 22:45 03:16 07:00 08:00 Temp 97.7 98.6 97.7 98.6 Pulse 67 67 Resp 17 18 B/P (MAP) 179/97 (124) 173/89 (117) 199/98 (131) Pulse Ox 100 100 O2 Delivery Room Air Room Air Room Air 11/24/19 08:12 Pulse 68 B/P (MAP) 199/98 Intake and Output 11/23/19 11/23/19 11/24/19 15:00 23:00 07:00 Intake Total 500 ml 200 ml Output Total 800 ml Balance 500 ml -600 ml Justicifation of Admission Dx: Justifications for Admission: Justification of Admission Dx: Yes Acute Renal Failure: Serum Cr > 4mg/dL JERRY JOLLYE MD Nov 24, 2019 12:36
[2019-11-24] MEDS: ATENOLOL 50 MG TABLET. PO SCH (12:53)
[2019-11-24] MEDS: hydrALAZINE 25 MG TABLET PO SCH ×2 (12:53→21:40)
[2019-11-24] MEDS: amLODIPine BESYLATE 10 MG TABLET PO SCH (12:54)
--- NOTE | 2019-11-24 14:02 | PDOC ---
PROGRESS NOTES Subjective Subjective SEEN IN FOLLOW UP OF NEW ESRD Objective Objective Vital Signs Date Time Temp Pulse Resp B/P (MAP) Pulse Ox O2 Delivery O2 Flow Rate FiO2 11/24/19 12:54 67 163/91 11/24/19 08:00 Room Air 11/24/19 07:00 98.6 18 100 98.6 11/23/19 14:30 2.0 Intake and Output 11/24/19 07:00 Intake Total 700 ml Output Total 800 ml Balance -100 ml Intake Oral 700 ml Output Urine Total 800 ml # Voids 1 Physical Exam Abdomen: Normal bowel sounds, Soft, No tenderness, No hepatosplenomegaly, No masses Heart: Regular rate, Normal S1, Normal S2, No murmurs, Gallops General: Alert, Oriented X3, Cooperative, No acute distress Lungs: Clear to auscultation, Normal air movement Psych/Mental Status: Mental status NL, Mood NL Diagnosis RENAL FAILURE: ESRD Assessment Assessment Problems Medical Problems: (1) Acute renal failure Status: Acute (2) Acute UTI Status: Acute (3) Anemia Status: Acute (4) Hypertensive urgency Status: Acute Plan Plan of Care DIALYSIS TODAY WAS TOLERATED WELL. HOME SOON Comment Review of Relevant I have reviewed the following items latrell (where applicable) has been applied. Labs Laboratory Tests Test 11/22/19 18:05 11/22/19 18:20 11/23/19 13:20 11/24/19 03:30 Urine Collection Type Void Urine Color Yellow Urine Clarity Clear Urine pH 5.5 (<5.0-8.0) Urine Specific [place] 1.015 (1.000-1.030) Urine Protein >=300 mg/dL (NEG-TRACE) Urine Glucose (UA) Negative mg/dL (NEG) Urine Ketones (Stick) Negative mg/dL (NEG) Urine Blood Negative (NEG) Urine Nitrite Negative (NEG) Urine Bilirubin Negative (NEG) Urine Urobilinogen Dipstick 0.2 mg/dL (0.2 mg/dL) Urine Leukocyte Esterase Small (NEG) Urine RBC 0 /HPF (0-2) Urine WBC 5-10 /HPF (0-4) Urine Squamous Epithelial Cells Many /LPF Urine Bacteria Few /HPF (0-FEW) Urine Mucus Marked /LPF White Blood Count 11.5 x10^3/uL (4.0-11.0) 9.7 x10^3/uL (4.0-11.0) Red Blood Count 2.65 x10^6/uL (3.50-5.40) 2.83 x10^6/uL (3.50-5.40) Hemoglobin 8.5 g/dL (12.0-15.5) 9.1 g/dL (12.0-15.5) Hematocrit 25.4 % (36.0-47.0) 26.5 % (36.0-47.0) Mean Corpuscular Volume 96 fL (79-100) 94 fL (79-100) Mean Corpuscular Hemoglobin 32 pg (25-35) 32 pg (25-35) Mean Corpuscular Hemoglobin Concent 34 g/dL (31-37) 34 g/dL (31-37) Red Cell Distribution Width 16.1 % (11.5-14.5) 15.9 % (11.5-14.5) Platelet Count 164 x10^3/uL (140-400) 155 x10^3/uL (140-400) Neutrophils (%) (Auto) 52 % (31-73) 58 % (31-73) Lymphocytes (%) (Auto) 38 % (24-48) 32 % (24-48) Monocytes (%) (Auto) 7 % (0-9) 7 % (0-9) Eosinophils (%) (Auto) 3 % (0-3) 3 % (0-3) Basophils (%) (Auto) 1 % (0-3) 1 % (0-3) Neutrophils # (Auto) 5.9 x10^3/uL (1.8-7.7) 5.6 x10^3/uL (1.8-7.7) Lymphocytes # (Auto) 4.3 x10^3/uL (1.0-4.8) 3.1 x10^3/uL (1.0-4.8) Monocytes # (Auto) 0.8 x10^3/uL (0.0-1.1) 0.7 x10^3/uL (0.0-1.1) Eosinophils # (Auto) 0.3 x10^3/uL (0.0-0.7) 0.2 x10^3/uL (0.0-0.7) Basophils # (Auto) 0.1 x10^3/uL (0.0-0.2) 0.0 x10^3/uL (0.0-0.2) Sodium Level 143 mmol/L (136-145) Potassium Level 4.2 mmol/L (3.5-5.1) Chloride Level 110 mmol/L (98-107) Carbon Dioxide Level 18 mmol/L (21-32) Anion Gap 15 (6-14) Blood Urea Nitrogen 57 mg/dL (7-20) Creatinine 7.0 mg/dL (0.6-1.0) Estimated GFR (Cockcroft-Gault) 7.2 BUN/Creatinine Ratio 8 (6-20) Glucose Level 71 mg/dL (70-99) Calcium Level 8.5 mg/dL (8.5-10.1) Total Bilirubin 0.1 mg/dL (0.2-1.0) 0.4 mg/dL (0.2-1.0) Aspartate Amino Transf (AST/SGOT) 12 U/L (15-37) 8 U/L (15-37) Alanine Aminotransferase (ALT/SGPT) 9 U/L (14-59) 11 U/L (14-59) Alkaline Phosphatase 59 U/L (46-116) 56 U/L (46-116) Total Protein 6.6 g/dL (6.4-8.2) 6.7 g/dL (6.4-8.2) Albumin 3.6 g/dL (3.4-5.0) 3.3 g/dL (3.4-5.0) Albumin/Globulin Ratio 1.2 (1.0-1.7) Prothrombin Time 12.8 SEC (11.7-14.0) Prothromb Time International Ratio 1.0 (0.8-1.1) Activated Partial Thromboplast Time 33 SEC (24-38) Hepatitis B Surface Antigen Nonreactive (Nonreactive) Hepatitis B Surface Antibody, Quant <3.1 mIU/mL (Immunity>9.9) Ferritin 272 ng/mL (8-252) Direct Bilirubin 0.1 mg/dL (0.0-0.2) Triglycerides Level 98 mg/dL (0-150) Cholesterol Level 124 mg/dL (0-200) LDL Cholesterol, Calculated 63 mg/dL (0-100) VLDL Cholesterol, Calculated 20 mg/dL (0-40) Non-HDL Cholesterol Calculated 83 mg/dL (0-129) HDL Cholesterol 41 mg/dL (40-60) Cholesterol/HDL Ratio 3.0 Test 11/24/19 05:00 11/24/19 12:07 Sodium Level 140 mmol/L (136-145) Potassium Level 3.6 mmol/L (3.5-5.1) Chloride Level 104 mmol/L (98-107) Carbon Dioxide Level 26 mmol/L (21-32) Anion Gap 10 (6-14) Blood Urea Nitrogen 27 mg/dL (7-20) Creatinine 4.5 mg/dL (0.6-1.0) Estimated GFR (Cockcroft-Gault) 12.0 Glucose Level 98 mg/dL (70-99) Calcium Level 9.0 mg/dL (8.5-10.1) Iron Level 30 ug/dL (50-170) Total Iron Binding Capacity 227 ug/dL (250-450) Iron Saturation 13 % (15-34) Glucose (Fingerstick) 94 mg/dL (70-99) Laboratory Tests Test 11/24/19 03:30 11/24/19 05:00 11/24/19 12:07 White Blood Count 9.7 x10^3/uL (4.0-11.0) Red Blood Count 2.83 x10^6/uL (3.50-5.40) Hemoglobin 9.1 g/dL (12.0-15.5) Hematocrit 26.5 % (36.0-47.0) Mean Corpuscular Volume 94 fL (79-100) Mean Corpuscular Hemoglobin 32 pg (25-35) Mean Corpuscular Hemoglobin Concent 34 g/dL (31-37) Red Cell Distribution Width 15.9 % (11.5-14.5) Platelet Count 155 x10^3/uL (140-400) Neutrophils (%) (Auto) 58 % (31-73) Lymphocytes (%) (Auto) 32 % (24-48) Monocytes (%) (Auto) 7 % (0-9) Eosinophils (%) (Auto) 3 % (0-3) Basophils (%) (Auto) 1 % (0-3) Neutrophils # (Auto) 5.6 x10^3/uL (1.8-7.7) Lymphocytes # (Auto) 3.1 x10^3/uL (1.0-4.8) Monocytes # (Auto) 0.7 x10^3/uL (0.0-1.1) Eosinophils # (Auto) 0.2 x10^3/uL (0.0-0.7) Basophils # (Auto) 0.0 x10^3/uL (0.0-0.2) Ferritin 272 ng/mL (8-252) Total Bilirubin 0.4 mg/dL (0.2-1.0) Direct Bilirubin 0.1 mg/dL (0.0-0.2) Aspartate Amino Transf (AST/SGOT) 8 U/L (15-37) Alanine Aminotransferase (ALT/SGPT) 11 U/L (14-59) Alkaline Phosphatase 56 U/L (46-116) Total Protein 6.7 g/dL (6.4-8.2) Albumin 3.3 g/dL (3.4-5.0) Triglycerides Level 98 mg/dL (0-150) Cholesterol Level 124 mg/dL (0-200) LDL Cholesterol, Calculated 63 mg/dL (0-100) VLDL Cholesterol, Calculated 20 mg/dL (0-40) Non-HDL Cholesterol Calculated 83 mg/dL (0-129) HDL Cholesterol 41 mg/dL (40-60) Cholesterol/HDL Ratio 3.0 Sodium Level 140 mmol/L (136-145) Potassium Level 3.6 mmol/L (3.5-5.1) Chloride Level 104 mmol/L (98-107) Carbon Dioxide Level 26 mmol/L (21-32) Anion Gap 10 (6-14) Blood Urea Nitrogen 27 mg/dL (7-20) Creatinine 4.5 mg/dL (0.6-1.0) Estimated GFR (Cockcroft-Gault) 12.0 Glucose Level 98 mg/dL (70-99) Calcium Level 9.0 mg/dL (8.5-10.1) Iron Level 30 ug/dL (50-170) Total Iron Binding Capacity 227 ug/dL (250-450) Iron Saturation 13 % (15-34) Glucose (Fingerstick) 94 mg/dL (70-99) Medications Current Medications Sodium Chloride 1,000 ml @ 500 mls/hr 1X ONCE IV Last administered on 11/22/19at 18:15; Start 11/22/19 at 18:15; Stop 11/22/19 at 20:14; Status DC Hydralazine HCl (Apresoline Inj) 10 mg 1X ONCE IVP Last administered on 11/22/19at 18:45; Start 11/22/19 at 18:45; Stop 11/22/19 at 18:46; Status DC Ceftriaxone Sodium (Rocephin) 1 gm 1X ONCE IVP Last administered on 11/22/19at 19:00; Start 11/22/19 at 19:00; Stop 11/22/19 at 19:01; Status DC Ondansetron HCl (Zofran) 4 mg PRN Q8HRS PRN IV NAUSEA/VOMITING; Start 11/22/19 at 19:15; Stop 11/23/19 at 19:14; Status DC Labetalol HCl (Normodyne Iv Push) 20 mg 1X ONCE IVP Last administered on 11/22/19at 20:00; Start 11/22/19 at 20:00; Stop 11/22/19 at 20:01; Status DC Hydralazine HCl (Apresoline Inj) 20 mg 1X ONCE IVP Last administered on 11/22/19at 21:52; Start 11/22/19 at 22:00; Stop 11/22/19 at 22:01; Status DC Clonidine HCl (Catapres Tts-2) 1 patch WEEKLY TD Last administered on 11/22/19at 23:08; Start 11/22/19 at 23:30 Hydralazine HCl (Apresoline Inj) 20 mg PRN Q3HRS PRN IVP ELEVATED BP, SEE COMMENTS Last administered on 11/23/19at 10:55; Start 11/22/19 at 23:00 Acetaminophen/ Hydrocodone Bitart (Lortab 5/325) 1 tab PRN Q4HRS PRN PO PAIN Last administered on 11/23/19at 13:19; Start 11/23/19 at 08:30 Albuterol Sulfate (Ventolin Neb Soln) 2.5 mg PRN Q6HRS PRN INH SHORTNESS OF BREATH; Start 11/23/19 at 09:00 Amlodipine Besylate (Norvasc) 10 mg DAILY PO Last administered on 11/24/19at 12:54; Start 11/23/19 at 09:00 Atenolol (Tenormin) 50 mg DAILY PO Last administered on 11/24/19at 12:53; Start 11/23/19 at 09:00 Clonidine HCl (Catapres) 0.2 mg TID PO Last administered on 11/24/19at 08:12; Start 11/23/19 at 09:00 Cyclobenzaprine HCl (Flexeril) 10 mg QHS PO Last administered on 11/23/19at 21:06; Start 11/23/19 at 21:00 Ergocalciferol (Vitamin D2) 50,000 unit Nix PO ; Start 11/25/19 at 09:00 Hydralazine HCl (Apresoline) 25 mg BID PO Last administered on 11/24/19at 12:53; Start 11/23/19 at 09:00 Heparin Sodium (Porcine) (Heparin Sodium) 5,000 unit Q8HRS SQ Last administered on 11/24/19at 06:22; Start 11/23/19 at 14:00 Sodium Chloride 1,000 ml @ 1,000 mls/hr Q1H PRN IV hypotension; Start 11/23/19 at 11:30; Stop 11/23/19 at 17:29; Status DC Albumin Human 200 ml @ 200 mls/hr 1X PRN PRN IV Hypotension; Start 11/23/19 at 11:30; Stop 11/23/19 at 17:29; Status DC Diphenhydramine HCl (Benadryl) 25 mg 1X PRN PRN IV ITCHING; Start 11/23/19 at 11:30; Stop 11/24/19 at 11:29; Status DC Diphenhydramine HCl (Benadryl) 25 mg 1X PRN PRN IV ITCHING; Start 11/23/19 at 11:30; Stop 11/24/19 at 11:29; Status DC Sodium Chloride (Normal Saline Flush) 10 ml 1X PRN PRN IV AP catheter pack; Start 11/23/19 at 11:30; Stop 11/24/19 at 11:29; Status DC Sodium Chloride (Normal Saline Flush) 10 ml 1X PRN PRN IV INTERNAL COMMUNICATIONS INTERN catheter pack; Start 11/23/19 at 11:30; Stop 11/24/19 at 11:29; Status DC Sodium Chloride 1,000 ml @ 400 mls/hr Q2H30M PRN IV PATENCY; Start 11/23/19 at 11:30; Stop 11/23/19 at 23:29; Status DC Info (PHARMACY MONITORING -- do not chart) 1 each PRN DAILY PRN MC SEE COMMENTS; Start 11/23/19 at 11:30 Lidocaine/ Epinephrine (LIDOCAINE 1%-EPI 1:100,000 Multi-Dose) 20 ml STK-MED ONCE .ROUTE ; Start 11/23/19 at 12:44; Stop 11/23/19 at 12:44; Status DC Cefazolin Sodium (Ancef) 1 gm STK-MED ONCE IVP ; Start 11/23/19 at 14:05; Stop 11/23/19 at 14:06; Status DC Midazolam HCl (Versed) 2 mg STK-MED ONCE .ROUTE ; Start 11/23/19 at 14:05; Stop 11/23/19 at 14:06; Status DC Fentanyl Citrate (Fentanyl 2ml Vial) 100 mcg STK-MED ONCE .ROUTE ; Start 11/23/19 at 14:05; Stop 11/23/19 at 14:06; Status DC Midazolam HCl (Versed) 2 mg 1X ONCE IV Last administered on 11/23/19at 14:30; Start 11/23/19 at 14:30; Stop 11/23/19 at 14:31; Status DC Fentanyl Citrate (Fentanyl 2ml Vial) 100 mcg 1X ONCE IV Last administered on 11/23/19at 14:30; Start 11/23/19 at 14:30; Stop 11/23/19 at 14:31; Status DC Lidocaine/ Epinephrine (LIDOCAINE 1%-EPI 1:100,000 Multi-Dose) 20 ml 1X ONCE INJ Last administered on 11/23/19at 14:30; Start 11/23/19 at 14:30; Stop 11/23/19 at 14:31; Status DC Cefazolin Sodium (Ancef) 1 gm 1X ONCE IVP Last administered on 11/23/19at 14:30; Start 11/23/19 at 14:30; Stop 11/23/19 at 14:31; Status DC Sodium Chloride 1,000 ml @ 1,000 mls/hr Q1H PRN IV hypotension; Start 11/24/19 at 08:04; Stop 11/24/19 at 14:03 Albumin Human 200 ml @ 200 mls/hr 1X PRN PRN IV Hypotension; Start 11/24/19 at 08:15; Stop 11/24/19 at 14:14 Sodium Chloride 1,000 ml @ 400 mls/hr Q2H30M PRN IV PATENCY; Start 11/24/19 at 08:04; Stop 11/24/19 at 20:03 Info (PHARMACY MONITORING -- do not chart) 1 each PRN DAILY PRN MC SEE COMMENTS; Start 11/24/19 at 08:15 Info (PHARMACY MONITORING -- do not chart) 1 each PRN DAILY PRN MC SEE COMMENTS; Start 11/24/19 at 08:15; Status UNV Active Scripts Active Reported Vitamin D2 (Ergocalciferol (Vitamin D2)) 1,250 Mcg Capsule 1,250 Mcg PO QSU Atenolol 50 Mg Tablet 50 Mg PO DAILY Hydralazine Hcl 25 Mg Tablet 25 Mg PO BID Benicar (Olmesartan Medoxomil) 40 Mg Tablet 40 Mg PO DAILY PRN Amlodipine Besylate 10 Mg Tablet 10 Mg PO DAILY Clonidine Hcl 0.2 Mg Tablet 1 Tab PO TID Cyclobenzaprine Hcl 10 Mg Tablet 1 Tab PO QHS Proair Hfa Inhaler (Albuterol Sulfate) 8.5 Gm Hfa.aer.ad 1 Puff INH PRN Q6HRS PRN Hydrocodone-Apap 5-325 (Hydrocodone Bit/Acetaminophen) 1 Each Tablet 1 Tab PO PRN Q8HRS PRN Vitals/I & O Vital Sign - Last 24 Hours 11/23/19 11/23/19 11/23/19 11/23/19 14:19 14:30 17:50 19:00 Temp 98.3 98.3 Pulse 63 Resp 12 18 B/P (MAP) 180/99 (126) Pulse Ox 98 100 99 O2 Delivery Room Air Nasal Cannula Room Air Room Air O2 Flow Rate 2.0 11/23/19 11/23/19 11/23/19 11/23/19 20:00 21:06 21:07 22:45 Temp 97.7 97.7 Pulse 65 66 67 Resp 17 B/P (MAP) 185/93 185/93 179/97 (124) Pulse Ox 100 O2 Delivery Room Air Room Air 7/18/20 7/18/20 7/18/20 7/18/20 03:16 07:00 08:00 08:12 Temp 98.6 98.6 Pulse 67 68 Resp 18 B/P (MAP) 173/89 (117) 199/98 (131) 199/98 Pulse Ox 100 O2 Delivery Room Air Room Air 11/24/19 11/24/19 11/24/19 12:53 12:53 12:54 Pulse 61 67 67 B/P (MAP) 163/91 163/91 163/91 Intake and Output 11/23/19 11/23/19 11/24/19 15:00 23:00 07:00 Intake Total 500 ml 200 ml Output Total 800 ml Balance 500 ml -600 ml Justicifation of Admission Dx: Justifications for Admission: Justification of Admission Dx: Yes Acute Renal Failure: Serum Cr > 4mg/dL DARIUS CRUMP MD Nov 24, 2019 14:02
[2019-11-24 15:00] VITALS: BP 151/85
[2019-11-24 18:40] VITALS: BP 124/74
[2019-11-24] MEDS: CYCLOBENZAPRINE 10 MG TABLET. PO SCH (21:40)
[2019-11-24 23:00] VITALS: BP 142/93
[2019-11-25 03:00] VITALS: BP 147/101
[2019-11-25] MEDS: HEPARIN for SUB-Q USE 5,000 UNIT/ML VIAL. SQ SCH ×3 (05:55→22:27)
[2019-11-25 07:00] VITALS: BP 156/91
[2019-11-25 07:33] LABS: BASO % 0 % (0-3); EOS # 0.3 x10^3/uL (0.0-0.7); EOS % 2 % (0-3); HEMATOCRIT 28.1 % (36.0-47.0); HEMOGLOBIN 9.2 g/dL (12.0-15.5); LYMPH % 36 % (24-48); MEAN CORPUSCULAR HEMOGLOBIN 31 pg (25-35); MEAN CORPUSCULAR HGB CONC 33 g/dL (31-37); MEAN CORPUSCULAR VOLUME 95 fL (79-100); MONO # 0.8 x10^3/uL (0.0-1.1); MONO % 7 % (0-9); NEUT # 6.2 x10^3/uL (1.8-7.7); NEUT % 55 % (31-73); PLATELET COUNT 162 x10^3/uL (140-400); RED BLOOD COUNT 2.97 x10^6/uL (3.50-5.40); RED CELL DISTRIBUTION WIDTH 15.6 % (11.5-14.5); WHITE BLOOD COUNT 11.4 x10^3/uL (4.0-11.0)
[2019-11-25 07:53] LABS: CALCIUM 9.1 mg/dL (8.5-10.1); CREATININE 4.5 mg/dL (0.6-1.0); POTASSIUM 3.7 mmol/L (3.5-5.1)
[2019-11-25] MEDS ORDERED: ERGOCALCIFEROL (VITAMIN D2) 50,000 UNIT CAPSULE. PO SCH (09:00)
[2019-11-25] MEDS: ATENOLOL 50 MG TABLET. PO SCH (10:24)
[2019-11-25] MEDS: amLODIPine BESYLATE 10 MG TABLET PO SCH (10:25)
[2019-11-25] MEDS: cloNIDine HCL 0.2 MG TABLET PO SCH ×3 (10:25→22:19)
[2019-11-25] MEDS: hydrALAZINE 25 MG TABLET PO SCH ×2 (10:26→21:00)
[2019-11-25] MEDS: HYDROcodone/APAP 5/325MG 1 TAB TABLET PO PRN ×2 (10:29→22:20)
[2019-11-25 11:00] VITALS: BP 131/86
--- NOTE | 2019-11-25 11:17 | PDOC ---
PROGRESS NOTES Subjective Subjective Patient seen and examined Objective Objective Vital Signs Date Time Temp Pulse Resp B/P (MAP) Pulse Ox O2 Delivery O2 Flow Rate FiO2 11/25/19 10:29 Room Air 11/25/19 10:26 65 156/91 11/25/19 07:00 97.8 18 98 97.8 11/23/19 14:30 2.0 Intake and Output 11/25/19 07:00 Intake Total 750 ml Balance 750 ml Intake Oral 750 ml # Voids 1 Physical Exam Abdomen: Normal bowel sounds Heart: Regular rate General: mild distress Lungs: Other (Mildly decreased breath sounds) Assessment Assessment Problems Medical Problems: (1) Acute renal failure Status: Acute (2) Acute UTI Status: Acute (3) Anemia Status: Acute (4) Hypertensive urgency Status: Acute 1. Acute renal failure. Hemodialysis as per renal. Creatinine continues to improve. Patient continues to feel better. 2. Hypertensive urgency. Patient's blood pressure also continues to improve. 3. Hyperlipidemia. Reasonable control. Continue medical treatment. 4. Diabetes mellitus. As per the primary service. Comment Review of Relevant I have reviewed the following items latrell (where applicable) has been applied. Labs Laboratory Tests Test 11/23/19 13:20 11/24/19 03:30 11/24/19 05:00 11/24/19 12:07 Prothrombin Time 12.8 SEC (11.7-14.0) Prothromb Time International Ratio 1.0 (0.8-1.1) Activated Partial Thromboplast Time 33 SEC (24-38) Hepatitis B Surface Antigen Nonreactive (Nonreactive) Hepatitis B Surface Antibody, Quant <3.1 mIU/mL (Immunity>9.9) White Blood Count 9.7 x10^3/uL (4.0-11.0) Red Blood Count 2.83 x10^6/uL (3.50-5.40) Hemoglobin 9.1 g/dL (12.0-15.5) Hematocrit 26.5 % (36.0-47.0) Mean Corpuscular Volume 94 fL (79-100) Mean Corpuscular Hemoglobin 32 pg (25-35) Mean Corpuscular Hemoglobin Concent 34 g/dL (31-37) Red Cell Distribution Width 15.9 % (11.5-14.5) Platelet Count 155 x10^3/uL (140-400) Neutrophils (%) (Auto) 58 % (31-73) Lymphocytes (%) (Auto) 32 % (24-48) Monocytes (%) (Auto) 7 % (0-9) Eosinophils (%) (Auto) 3 % (0-3) Basophils (%) (Auto) 1 % (0-3) Neutrophils # (Auto) 5.6 x10^3/uL (1.8-7.7) Lymphocytes # (Auto) 3.1 x10^3/uL (1.0-4.8) Monocytes # (Auto) 0.7 x10^3/uL (0.0-1.1) Eosinophils # (Auto) 0.2 x10^3/uL (0.0-0.7) Basophils # (Auto) 0.0 x10^3/uL (0.0-0.2) Ferritin 272 ng/mL (8-252) Total Bilirubin 0.4 mg/dL (0.2-1.0) Direct Bilirubin 0.1 mg/dL (0.0-0.2) Aspartate Amino Transf (AST/SGOT) 8 U/L (15-37) Alanine Aminotransferase (ALT/SGPT) 11 U/L (14-59) Alkaline Phosphatase 56 U/L (46-116) Total Protein 6.7 g/dL (6.4-8.2) Albumin 3.3 g/dL (3.4-5.0) Triglycerides Level 98 mg/dL (0-150) Cholesterol Level 124 mg/dL (0-200) LDL Cholesterol, Calculated 63 mg/dL (0-100) VLDL Cholesterol, Calculated 20 mg/dL (0-40) Non-HDL Cholesterol Calculated 83 mg/dL (0-129) HDL Cholesterol 41 mg/dL (40-60) Cholesterol/HDL Ratio 3.0 Sodium Level 140 mmol/L (136-145) Potassium Level 3.6 mmol/L (3.5-5.1) Chloride Level 104 mmol/L (98-107) Carbon Dioxide Level 26 mmol/L (21-32) Anion Gap 10 (6-14) Blood Urea Nitrogen 27 mg/dL (7-20) Creatinine 4.5 mg/dL (0.6-1.0) Estimated GFR (Cockcroft-Gault) 12.0 Glucose Level 98 mg/dL (70-99) Calcium Level 9.0 mg/dL (8.5-10.1) Iron Level 30 ug/dL (50-170) Total Iron Binding Capacity 227 ug/dL (250-450) Iron Saturation 13 % (15-34) Glucose (Fingerstick) 94 mg/dL (70-99) Test 11/25/19 06:55 White Blood Count 11.4 x10^3/uL (4.0-11.0) Red Blood Count 2.97 x10^6/uL (3.50-5.40) Hemoglobin 9.2 g/dL (12.0-15.5) Hematocrit 28.1 % (36.0-47.0) Mean Corpuscular Volume 95 fL (79-100) Mean Corpuscular Hemoglobin 31 pg (25-35) Mean Corpuscular Hemoglobin Concent 33 g/dL (31-37) Red Cell Distribution Width 15.6 % (11.5-14.5) Platelet Count 162 x10^3/uL (140-400) Neutrophils (%) (Auto) 55 % (31-73) Lymphocytes (%) (Auto) 36 % (24-48) Monocytes (%) (Auto) 7 % (0-9) Eosinophils (%) (Auto) 2 % (0-3) Basophils (%) (Auto) 0 % (0-3) Neutrophils # (Auto) 6.2 x10^3/uL (1.8-7.7) Lymphocytes # (Auto) 4.0 x10^3/uL (1.0-4.8) Monocytes # (Auto) 0.8 x10^3/uL (0.0-1.1) Eosinophils # (Auto) 0.3 x10^3/uL (0.0-0.7) Basophils # (Auto) 0.0 x10^3/uL (0.0-0.2) Sodium Level 138 mmol/L (136-145) Potassium Level 3.7 mmol/L (3.5-5.1) Chloride Level 99 mmol/L (98-107) Carbon Dioxide Level 30 mmol/L (21-32) Anion Gap 9 (6-14) Blood Urea Nitrogen 23 mg/dL (7-20) Creatinine 4.5 mg/dL (0.6-1.0) Estimated GFR (Cockcroft-Gault) 12.0 Glucose Level 102 mg/dL (70-99) Calcium Level 9.1 mg/dL (8.5-10.1) Laboratory Tests Test 11/24/19 12:07 11/25/19 06:55 Glucose (Fingerstick) 94 mg/dL (70-99) White Blood Count 11.4 x10^3/uL (4.0-11.0) Red Blood Count 2.97 x10^6/uL (3.50-5.40) Hemoglobin 9.2 g/dL (12.0-15.5) Hematocrit 28.1 % (36.0-47.0) Mean Corpuscular Volume 95 fL (79-100) Mean Corpuscular Hemoglobin 31 pg (25-35) Mean Corpuscular Hemoglobin Concent 33 g/dL (31-37) Red Cell Distribution Width 15.6 % (11.5-14.5) Platelet Count 162 x10^3/uL (140-400) Neutrophils (%) (Auto) 55 % (31-73) Lymphocytes (%) (Auto) 36 % (24-48) Monocytes (%) (Auto) 7 % (0-9) Eosinophils (%) (Auto) 2 % (0-3) Basophils (%) (Auto) 0 % (0-3) Neutrophils # (Auto) 6.2 x10^3/uL (1.8-7.7) Lymphocytes # (Auto) 4.0 x10^3/uL (1.0-4.8) Monocytes # (Auto) 0.8 x10^3/uL (0.0-1.1) Eosinophils # (Auto) 0.3 x10^3/uL (0.0-0.7) Basophils # (Auto) 0.0 x10^3/uL (0.0-0.2) Sodium Level 138 mmol/L (136-145) Potassium Level 3.7 mmol/L (3.5-5.1) Chloride Level 99 mmol/L (98-107) Carbon Dioxide Level 30 mmol/L (21-32) Anion Gap 9 (6-14) Blood Urea Nitrogen 23 mg/dL (7-20) Creatinine 4.5 mg/dL (0.6-1.0) Estimated GFR (Cockcroft-Gault) 12.0 Glucose Level 102 mg/dL (70-99) Calcium Level 9.1 mg/dL (8.5-10.1) Medications Current Medications Sodium Chloride 1,000 ml @ 500 mls/hr 1X ONCE IV Last administered on 11/22/19at 18:15; Start 11/22/19 at 18:15; Stop 11/22/19 at 20:14; Status DC Hydralazine HCl (Apresoline Inj) 10 mg 1X ONCE IVP Last administered on 11/22/19at 18:45; Start 11/22/19 at 18:45; Stop 11/22/19 at 18:46; Status DC Ceftriaxone Sodium (Rocephin) 1 gm 1X ONCE IVP Last administered on 11/22/19at 19:00; Start 11/22/19 at 19:00; Stop 11/22/19 at 19:01; Status DC Ondansetron HCl (Zofran) 4 mg PRN Q8HRS PRN IV NAUSEA/VOMITING; Start 11/22/19 at 19:15; Stop 11/23/19 at 19:14; Status DC Labetalol HCl (Normodyne Iv Push) 20 mg 1X ONCE IVP Last administered on 11/22/19at 20:00; Start 11/22/19 at 20:00; Stop 11/22/19 at 20:01; Status DC Hydralazine HCl (Apresoline Inj) 20 mg 1X ONCE IVP Last administered on 11/22/19at 21:52; Start 11/22/19 at 22:00; Stop 11/22/19 at 22:01; Status DC Clonidine HCl (Catapres Tts-2) 1 patch WEEKLY TD Last administered on 11/22/19at 23:08; Start 11/22/19 at 23:30 Hydralazine HCl (Apresoline Inj) 20 mg PRN Q3HRS PRN IVP ELEVATED BP, SEE COMMENTS Last administered on 11/23/19at 10:55; Start 11/22/19 at 23:00 Acetaminophen/ Hydrocodone Bitart (Lortab 5/325) 1 tab PRN Q4HRS PRN PO PAIN Last administered on 11/25/19at 10:29; Start 11/23/19 at 08:30 Albuterol Sulfate (Ventolin Neb Soln) 2.5 mg PRN Q6HRS PRN INH SHORTNESS OF BREATH; Start 11/23/19 at 09:00 Amlodipine Besylate (Norvasc) 10 mg DAILY PO Last administered on 11/25/19at 10:25; Start 11/23/19 at 09:00 Atenolol (Tenormin) 50 mg DAILY PO Last administered on 11/25/19at 10:24; Start 11/23/19 at 09:00 Clonidine HCl (Catapres) 0.2 mg TID PO Last administered on 11/25/19at 10:25; Start 11/23/19 at 09:00 Cyclobenzaprine HCl (Flexeril) 10 mg QHS PO Last administered on 11/24/19at 21:40; Start 11/23/19 at 21:00 Ergocalciferol (Vitamin D2) 50,000 unit Nix PO Last administered on 11/25/19at 10:25; Start 11/25/19 at 09:00 Hydralazine HCl (Apresoline) 25 mg BID PO Last administered on 11/25/19at 10:26; Start 11/23/19 at 09:00 Heparin Sodium (Porcine) (Heparin Sodium) 5,000 unit Q8HRS SQ Last administered on 11/25/19at 05:55; Start 11/23/19 at 14:00 Sodium Chloride 1,000 ml @ 1,000 mls/hr Q1H PRN IV hypotension; Start 11/23/19 at 11:30; Stop 11/23/19 at 17:29; Status DC Albumin Human 200 ml @ 200 mls/hr 1X PRN PRN IV Hypotension; Start 11/23/19 at 11:30; Stop 11/23/19 at 17:29; Status DC Diphenhydramine HCl (Benadryl) 25 mg 1X PRN PRN IV ITCHING; Start 11/23/19 at 11:30; Stop 11/24/19 at 11:29; Status DC Diphenhydramine HCl (Benadryl) 25 mg 1X PRN PRN IV ITCHING; Start 11/23/19 at 11:30; Stop 11/24/19 at 11:29; Status DC Sodium Chloride (Normal Saline Flush) 10 ml 1X PRN PRN IV AP catheter pack; Start 11/23/19 at 11:30; Stop 11/24/19 at 11:29; Status DC Sodium Chloride (Normal Saline Flush) 10 ml 1X PRN PRN IV CTE TEACHER catheter pack; Start 11/23/19 at 11:30; Stop 11/24/19 at 11:29; Status DC Sodium Chloride 1,000 ml @ 400 mls/hr Q2H30M PRN IV PATENCY; Start 11/23/19 at 11:30; Stop 11/23/19 at 23:29; Status DC Info (PHARMACY MONITORING -- do not chart) 1 each PRN DAILY PRN MC SEE COMMENTS; Start 11/23/19 at 11:30; Stop 11/25/19 at 08:20; Status DC Lidocaine/ Epinephrine (LIDOCAINE 1%-EPI 1:100,000 Multi-Dose) 20 ml STK-MED ONCE .ROUTE ; Start 11/23/19 at 12:44; Stop 11/23/19 at 12:44; Status DC Cefazolin Sodium (Ancef) 1 gm STK-MED ONCE IVP ; Start 11/23/19 at 14:05; Stop 11/23/19 at 14:06; Status DC Midazolam HCl (Versed) 2 mg STK-MED ONCE .ROUTE ; Start 11/23/19 at 14:05; Stop 11/23/19 at 14:06; Status DC Fentanyl Citrate (Fentanyl 2ml Vial) 100 mcg STK-MED ONCE .ROUTE ; Start 11/23/19 at 14:05; Stop 11/23/19 at 14:06; Status DC Midazolam HCl (Versed) 2 mg 1X ONCE IV Last administered on 11/23/19at 14:30; Start 11/23/19 at 14:30; Stop 11/23/19 at 14:31; Status DC Fentanyl Citrate (Fentanyl 2ml Vial) 100 mcg 1X ONCE IV Last administered on 11/23/19at 14:30; Start 11/23/19 at 14:30; Stop 11/23/19 at 14:31; Status DC Lidocaine/ Epinephrine (LIDOCAINE 1%-EPI 1:100,000 Multi-Dose) 20 ml 1X ONCE INJ Last administered on 11/23/19at 14:30; Start 11/23/19 at 14:30; Stop 11/23/19 at 14:31; Status DC Cefazolin Sodium (Ancef) 1 gm 1X ONCE IVP Last administered on 11/23/19at 14:30; Start 11/23/19 at 14:30; Stop 11/23/19 at 14:31; Status DC Sodium Chloride 1,000 ml @ 1,000 mls/hr Q1H PRN IV hypotension; Start 11/24/19 at 08:04; Stop 11/24/19 at 14:03; Status DC Albumin Human 200 ml @ 200 mls/hr 1X PRN PRN IV Hypotension; Start 11/24/19 at 08:15; Stop 11/24/19 at 14:14; Status DC Sodium Chloride 1,000 ml @ 400 mls/hr Q2H30M PRN IV PATENCY; Start 11/24/19 at 08:04; Stop 11/24/19 at 20:03; Status DC Info (PHARMACY MONITORING -- do not chart) 1 each PRN DAILY PRN MC SEE COMMENTS; Start 11/24/19 at 08:15 Info (PHARMACY MONITORING -- do not chart) 1 each PRN DAILY PRN MC SEE COMMENTS; Start 11/24/19 at 08:15; Status UNV Active Scripts Active Reported Vitamin D2 (Ergocalciferol (Vitamin D2)) 1,250 Mcg Capsule 1,250 Mcg PO QSU Atenolol 50 Mg Tablet 50 Mg PO DAILY Hydralazine Hcl 25 Mg Tablet 25 Mg PO BID Benicar (Olmesartan Medoxomil) 40 Mg Tablet 40 Mg PO DAILY PRN Amlodipine Besylate 10 Mg Tablet 10 Mg PO DAILY Clonidine Hcl 0.2 Mg Tablet 1 Tab PO TID Cyclobenzaprine Hcl 10 Mg Tablet 1 Tab PO QHS Proair Hfa Inhaler (Albuterol Sulfate) 8.5 Gm Hfa.aer.ad 1 Puff INH PRN Q6HRS PRN Hydrocodone-Apap 5-325 (Hydrocodone Bit/Acetaminophen) 1 Each Tablet 1 Tab PO PRN Q8HRS PRN Vitals/I & O Vital Sign - Last 24 Hours 11/24/19 11/24/19 11/24/19 11/24/19 12:53 12:53 12:54 15:00 Temp 98.5 98.5 Pulse 61 67 67 64 Resp 16 B/P (MAP) 163/91 163/91 163/91 151/85 (107) Pulse Ox 98 O2 Delivery Room Air 11/24/19 11/24/19 11/24/1920 16:21 18:40 20:00 21:40 Temp 98.5 98.5 Pulse 64 64 64 Resp 16 B/P (MAP) 151/85 124/74 (91) 124/74 Pulse Ox 98 O2 Delivery Room Air Room Air 11/24/19 11/24/19 11/25/19 11/25/19 21:40 23:00 03:00 07:00 Temp 99.3 97.7 97.8 99.3 97.7 97.8 Pulse 64 65 66 65 Resp 17 17 18 B/P (MAP) 124/74 142/93 (109) 147/101 (116) 156/91 (112) Pulse Ox 98 98 98 O2 Delivery Room Air Room Air Room Air 11/25/19 11/25/19 11/25/19 11/25/19 08:30 10:24 10:25 10:25 Pulse 65 65 65 B/P (MAP) 156/91 156/91 156/91 O2 Delivery Room Air 11/25/19 11/25/19 10:26 10:29 Pulse 65 B/P (MAP) 156/91 O2 Delivery Room Air Intake and Output 11/24/19 11/24/19 11/25/19 15:00 23:00 07:00 Intake Total 200 ml 550 ml Balance 200 ml 550 ml Justicifation of Admission Dx: Justifications for Admission: Justification of Admission Dx: Yes Acute Renal Failure: Serum Cr > 4mg/dL REGLA NICHOLAS MD Nov 25, 2019 11:17
--- NOTE | 2019-11-25 12:19 | PDOC ---
PROGRESS NOTES Chief Complaint Chief Complaint ASSESSMENT HTN Urgency Progressive Renal Failure CKD stage 4 secondary to likely HTN Nephropathy Anemia of CKD PLAN restartED home BP meds, prn BALLARD nephro consult for HD lytes stable daily BMP dvt ppx full code need to arrange for HD seat as outpatient. CM consult History of Present Illness History of Present Illness patient anxious to leave hospital. agreed to stay one more day. need to arrange outpatient HD prior to dc Vitals Vitals Vital Signs Date Time Temp Pulse Resp B/P (MAP) Pulse Ox O2 Delivery O2 Flow Rate FiO2 11/25/19 10:29 Room Air 11/25/19 10:26 65 156/91 11/25/19 07:00 97.8 18 98 97.8 Physical Exam General: mild distress Heart: Regular rate Abdomen: Normal bowel sounds Labs LABS Laboratory Tests Test 11/25/19 06:55 White Blood Count 11.4 x10^3/uL (4.0-11.0) Red Blood Count 2.97 x10^6/uL (3.50-5.40) Hemoglobin 9.2 g/dL (12.0-15.5) Hematocrit 28.1 % (36.0-47.0) Mean Corpuscular Volume 95 fL (79-100) Mean Corpuscular Hemoglobin 31 pg (25-35) Mean Corpuscular Hemoglobin Concent 33 g/dL (31-37) Red Cell Distribution Width 15.6 % (11.5-14.5) Platelet Count 162 x10^3/uL (140-400) Neutrophils (%) (Auto) 55 % (31-73) Lymphocytes (%) (Auto) 36 % (24-48) Monocytes (%) (Auto) 7 % (0-9) Eosinophils (%) (Auto) 2 % (0-3) Basophils (%) (Auto) 0 % (0-3) Neutrophils # (Auto) 6.2 x10^3/uL (1.8-7.7) Lymphocytes # (Auto) 4.0 x10^3/uL (1.0-4.8) Monocytes # (Auto) 0.8 x10^3/uL (0.0-1.1) Eosinophils # (Auto) 0.3 x10^3/uL (0.0-0.7) Basophils # (Auto) 0.0 x10^3/uL (0.0-0.2) Sodium Level 138 mmol/L (136-145) Potassium Level 3.7 mmol/L (3.5-5.1) Chloride Level 99 mmol/L (98-107) Carbon Dioxide Level 30 mmol/L (21-32) Anion Gap 9 (6-14) Blood Urea Nitrogen 23 mg/dL (7-20) Creatinine 4.5 mg/dL (0.6-1.0) Estimated GFR (Cockcroft-Gault) 12.0 Glucose Level 102 mg/dL (70-99) Calcium Level 9.1 mg/dL (8.5-10.1) Assessment and Plan Assessmemt and Plan Problems Medical Problems: (1) Acute renal failure Status: Acute (2) Acute UTI Status: Acute (3) Anemia Status: Acute (4) Hypertensive urgency Status: Acute Comment Review of Relevant I have reviewed the following items latrell (where applicable) has been applied. Labs Laboratory Tests Test 11/23/19 13:20 11/24/19 03:30 11/24/19 05:00 11/24/19 12:07 Prothrombin Time 12.8 SEC (11.7-14.0) Prothromb Time International Ratio 1.0 (0.8-1.1) Activated Partial Thromboplast Time 33 SEC (24-38) Hepatitis B Surface Antigen Nonreactive (Nonreactive) Hepatitis B Surface Antibody, Quant <3.1 mIU/mL (Immunity>9.9) White Blood Count 9.7 x10^3/uL (4.0-11.0) Red Blood Count 2.83 x10^6/uL (3.50-5.40) Hemoglobin 9.1 g/dL (12.0-15.5) Hematocrit 26.5 % (36.0-47.0) Mean Corpuscular Volume 94 fL (79-100) Mean Corpuscular Hemoglobin 32 pg (25-35) Mean Corpuscular Hemoglobin Concent 34 g/dL (31-37) Red Cell Distribution Width 15.9 % (11.5-14.5) Platelet Count 155 x10^3/uL (140-400) Neutrophils (%) (Auto) 58 % (31-73) Lymphocytes (%) (Auto) 32 % (24-48) Monocytes (%) (Auto) 7 % (0-9) Eosinophils (%) (Auto) 3 % (0-3) Basophils (%) (Auto) 1 % (0-3) Neutrophils # (Auto) 5.6 x10^3/uL (1.8-7.7) Lymphocytes # (Auto) 3.1 x10^3/uL (1.0-4.8) Monocytes # (Auto) 0.7 x10^3/uL (0.0-1.1) Eosinophils # (Auto) 0.2 x10^3/uL (0.0-0.7) Basophils # (Auto) 0.0 x10^3/uL (0.0-0.2) Ferritin 272 ng/mL (8-252) Total Bilirubin 0.4 mg/dL (0.2-1.0) Direct Bilirubin 0.1 mg/dL (0.0-0.2) Aspartate Amino Transf (AST/SGOT) 8 U/L (15-37) Alanine Aminotransferase (ALT/SGPT) 11 U/L (14-59) Alkaline Phosphatase 56 U/L (46-116) Total Protein 6.7 g/dL (6.4-8.2) Albumin 3.3 g/dL (3.4-5.0) Triglycerides Level 98 mg/dL (0-150) Cholesterol Level 124 mg/dL (0-200) LDL Cholesterol, Calculated 63 mg/dL (0-100) VLDL Cholesterol, Calculated 20 mg/dL (0-40) Non-HDL Cholesterol Calculated 83 mg/dL (0-129) HDL Cholesterol 41 mg/dL (40-60) Cholesterol/HDL Ratio 3.0 Sodium Level 140 mmol/L (136-145) Potassium Level 3.6 mmol/L (3.5-5.1) Chloride Level 104 mmol/L (98-107) Carbon Dioxide Level 26 mmol/L (21-32) Anion Gap 10 (6-14) Blood Urea Nitrogen 27 mg/dL (7-20) Creatinine 4.5 mg/dL (0.6-1.0) Estimated GFR (Cockcroft-Gault) 12.0 Glucose Level 98 mg/dL (70-99) Calcium Level 9.0 mg/dL (8.5-10.1) Iron Level 30 ug/dL (50-170) Total Iron Binding Capacity 227 ug/dL (250-450) Iron Saturation 13 % (15-34) Glucose (Fingerstick) 94 mg/dL (70-99) Test 11/25/19 06:55 White Blood Count 11.4 x10^3/uL (4.0-11.0) Red Blood Count 2.97 x10^6/uL (3.50-5.40) Hemoglobin 9.2 g/dL (12.0-15.5) Hematocrit 28.1 % (36.0-47.0) Mean Corpuscular Volume 95 fL (79-100) Mean Corpuscular Hemoglobin 31 pg (25-35) Mean Corpuscular Hemoglobin Concent 33 g/dL (31-37) Red Cell Distribution Width 15.6 % (11.5-14.5) Platelet Count 162 x10^3/uL (140-400) Neutrophils (%) (Auto) 55 % (31-73) Lymphocytes (%) (Auto) 36 % (24-48) Monocytes (%) (Auto) 7 % (0-9) Eosinophils (%) (Auto) 2 % (0-3) Basophils (%) (Auto) 0 % (0-3) Neutrophils # (Auto) 6.2 x10^3/uL (1.8-7.7) Lymphocytes # (Auto) 4.0 x10^3/uL (1.0-4.8) Monocytes # (Auto) 0.8 x10^3/uL (0.0-1.1) Eosinophils # (Auto) 0.3 x10^3/uL (0.0-0.7) Basophils # (Auto) 0.0 x10^3/uL (0.0-0.2) Sodium Level 138 mmol/L (136-145) Potassium Level 3.7 mmol/L (3.5-5.1) Chloride Level 99 mmol/L (98-107) Carbon Dioxide Level 30 mmol/L (21-32) Anion Gap 9 (6-14) Blood Urea Nitrogen 23 mg/dL (7-20) Creatinine 4.5 mg/dL (0.6-1.0) Estimated GFR (Cockcroft-Gault) 12.0 Glucose Level 102 mg/dL (70-99) Calcium Level 9.1 mg/dL (8.5-10.1) Laboratory Tests Test 11/25/19 06:55 White Blood Count 11.4 x10^3/uL (4.0-11.0) Red Blood Count 2.97 x10^6/uL (3.50-5.40) Hemoglobin 9.2 g/dL (12.0-15.5) Hematocrit 28.1 % (36.0-47.0) Mean Corpuscular Volume 95 fL (79-100) Mean Corpuscular Hemoglobin 31 pg (25-35) Mean Corpuscular Hemoglobin Concent 33 g/dL (31-37) Red Cell Distribution Width 15.6 % (11.5-14.5) Platelet Count 162 x10^3/uL (140-400) Neutrophils (%) (Auto) 55 % (31-73) Lymphocytes (%) (Auto) 36 % (24-48) Monocytes (%) (Auto) 7 % (0-9) Eosinophils (%) (Auto) 2 % (0-3) Basophils (%) (Auto) 0 % (0-3) Neutrophils # (Auto) 6.2 x10^3/uL (1.8-7.7) Lymphocytes # (Auto) 4.0 x10^3/uL (1.0-4.8) Monocytes # (Auto) 0.8 x10^3/uL (0.0-1.1) Eosinophils # (Auto) 0.3 x10^3/uL (0.0-0.7) Basophils # (Auto) 0.0 x10^3/uL (0.0-0.2) Sodium Level 138 mmol/L (136-145) Potassium Level 3.7 mmol/L (3.5-5.1) Chloride Level 99 mmol/L (98-107) Carbon Dioxide Level 30 mmol/L (21-32) Anion Gap 9 (6-14) Blood Urea Nitrogen 23 mg/dL (7-20) Creatinine 4.5 mg/dL (0.6-1.0) Estimated GFR (Cockcroft-Gault) 12.0 Glucose Level 102 mg/dL (70-99) Calcium Level 9.1 mg/dL (8.5-10.1) Medications Current Medications Sodium Chloride 1,000 ml @ 500 mls/hr 1X ONCE IV Last administered on 11/22/19at 18:15; Start 11/22/19 at 18:15; Stop 11/22/19 at 20:14; Status DC Hydralazine HCl (Apresoline Inj) 10 mg 1X ONCE IVP Last administered on 11/22/19at 18:45; Start 11/22/19 at 18:45; Stop 11/22/19 at 18:46; Status DC Ceftriaxone Sodium (Rocephin) 1 gm 1X ONCE IVP Last administered on 11/22/19at 19:00; Start 11/22/19 at 19:00; Stop 11/22/19 at 19:01; Status DC Ondansetron HCl (Zofran) 4 mg PRN Q8HRS PRN IV NAUSEA/VOMITING; Start 11/22/19 at 19:15; Stop 11/23/19 at 19:14; Status DC Labetalol HCl (Normodyne Iv Push) 20 mg 1X ONCE IVP Last administered on 11/06 10/26at 20:00; Start 11/22/19 at 20:00; Stop 11/22/19 at 20:01; Status DC Hydralazine HCl (Apresoline Inj) 20 mg 1X ONCE IVP Last administered on 11/22/19at 21:52; Start 11/22/19 at 22:00; Stop 11/22/19 at 22:01; Status DC Clonidine HCl (Catapres Tts-2) 1 patch WEEKLY TD Last administered on 11/22/19at 23:08; Start 11/22/19 at 23:30 Hydralazine HCl (Apresoline Inj) 20 mg PRN Q3HRS PRN IVP ELEVATED BP, SEE COMMENTS Last administered on 11/23/19at 10:55; Start 11/22/19 at 23:00 Acetaminophen/ Hydrocodone Bitart (Lortab 5/325) 1 tab PRN Q4HRS PRN PO PAIN Last administered on 11/25/19at 10:29; Start 11/23/19 at 08:30 Albuterol Sulfate (Ventolin Neb Soln) 2.5 mg PRN Q6HRS PRN INH SHORTNESS OF BREATH; Start 11/23/19 at 09:00 Amlodipine Besylate (Norvasc) 10 mg DAILY PO Last administered on 11/25/19at 10:25; Start 11/23/19 at 09:00 Atenolol (Tenormin) 50 mg DAILY PO Last administered on 11/25/19at 10:24; Start 11/23/19 at 09:00 Clonidine HCl (Catapres) 0.2 mg TID PO Last administered on 11/25/19at 10:25; Start 11/23/19 at 09:00 Cyclobenzaprine HCl (Flexeril) 10 mg QHS PO Last administered on 11/24/19at 21:40; Start 11/23/19 at 21:00 Ergocalciferol (Vitamin D2) 50,000 unit Nix PO Last administered on 11/25/19at 10:25; Start 11/25/19 at 09:00 Hydralazine HCl (Apresoline) 25 mg BID PO Last administered on 11/25/19at 10:26; Start 11/23/19 at 09:00 Heparin Sodium (Porcine) (Heparin Sodium) 5,000 unit Q8HRS SQ Last administered on 11/25/19at 05:55; Start 11/23/19 at 14:00 Sodium Chloride 1,000 ml @ 1,000 mls/hr Q1H PRN IV hypotension; Start 11/23/19 at 11:30; Stop 11/23/19 at 17:29; Status DC Albumin Human 200 ml @ 200 mls/hr 1X PRN PRN IV Hypotension; Start 11/23/19 at 11:30; Stop 11/23/19 at 17:29; Status DC Diphenhydramine HCl (Benadryl) 25 mg 1X PRN PRN IV ITCHING; Start 11/23/19 at 11:30; Stop 11/24/19 at 11:29; Status DC Diphenhydramine HCl (Benadryl) 25 mg 1X PRN PRN IV ITCHING; Start 11/23/19 at 11:30; Stop 11/24/19 at 11:29; Status DC Sodium Chloride (Normal Saline Flush) 10 ml 1X PRN PRN IV AP catheter pack; Start 11/23/19 at 11:30; Stop 11/24/19 at 11:29; Status DC Sodium Chloride (Normal Saline Flush) 10 ml 1X PRN PRN IV JOCKEY VALET catheter pack; Start 11/23/19 at 11:30; Stop 11/24/19 at 11:29; Status DC Sodium Chloride 1,000 ml @ 400 mls/hr Q2H30M PRN IV PATENCY; Start 11/23/19 at 11:30; Stop 11/23/19 at 23:29; Status DC Info (PHARMACY MONITORING -- do not chart) 1 each PRN DAILY PRN MC SEE COMMENTS; Start 11/23/19 at 11:30; Stop 11/25/19 at 08:20; Status DC Lidocaine/ Epinephrine (LIDOCAINE 1%-EPI 1:100,000 Multi-Dose) 20 ml STK-MED ONCE .ROUTE ; Start 11/23/19 at 12:44; Stop 11/23/19 at 12:44; Status DC Cefazolin Sodium (Ancef) 1 gm STK-MED ONCE IVP ; Start 11/23/19 at 14:05; Stop 11/23/19 at 14:06; Status DC Midazolam HCl (Versed) 2 mg STK-MED ONCE .ROUTE ; Start 11/23/19 at 14:05; Stop 11/23/19 at 14:06; Status DC Fentanyl Citrate (Fentanyl 2ml Vial) 100 mcg STK-MED ONCE .ROUTE ; Start 11/23/19 at 14:05; Stop 11/23/19 at 14:06; Status DC Midazolam HCl (Versed) 2 mg 1X ONCE IV Last administered on 11/23/19at 14:30; Start 11/23/19 at 14:30; Stop 11/23/19 at 14:31; Status DC Fentanyl Citrate (Fentanyl 2ml Vial) 100 mcg 1X ONCE IV Last administered on 11/23/19at 14:30; Start 11/23/19 at 14:30; Stop 11/23/19 at 14:31; Status DC Lidocaine/ Epinephrine (LIDOCAINE 1%-EPI 1:100,000 Multi-Dose) 20 ml 1X ONCE INJ Last administered on 11/23/19at 14:30; Start 11/23/19 at 14:30; Stop 11/23/19 at 14:31; Status DC Cefazolin Sodium (Ancef) 1 gm 1X ONCE IVP Last administered on 11/23/19at 14:30; Start 11/23/19 at 14:30; Stop 11/23/19 at 14:31; Status DC Sodium Chloride 1,000 ml @ 1,000 mls/hr Q1H PRN IV hypotension; Start 11/24/19 at 08:04; Stop 11/24/19 at 14:03; Status DC Albumin Human 200 ml @ 200 mls/hr 1X PRN PRN IV Hypotension; Start 11/24/19 at 08:15; Stop 11/24/19 at 14:14; Status DC Sodium Chloride 1,000 ml @ 400 mls/hr Q2H30M PRN IV PATENCY; Start 11/24/19 at 08:04; Stop 11/24/19 at 20:03; Status DC Info (PHARMACY MONITORING -- do not chart) 1 each PRN DAILY PRN MC SEE COMMENTS; Start 11/24/19 at 08:15 Info (PHARMACY MONITORING -- do not chart) 1 each PRN DAILY PRN MC SEE COMMENTS; Start 11/24/19 at 08:15; Status UNV Active Scripts Active Reported Vitamin D2 (Ergocalciferol (Vitamin D2)) 1,250 Mcg Capsule 1,250 Mcg PO QSU Atenolol 50 Mg Tablet 50 Mg PO DAILY Hydralazine Hcl 25 Mg Tablet 25 Mg PO BID Benicar (Olmesartan Medoxomil) 40 Mg Tablet 40 Mg PO DAILY PRN Amlodipine Besylate 10 Mg Tablet 10 Mg PO DAILY Clonidine Hcl 0.2 Mg Tablet 1 Tab PO TID Cyclobenzaprine Hcl 10 Mg Tablet 1 Tab PO QHS Proair Hfa Inhaler (Albuterol Sulfate) 8.5 Gm Hfa.aer.ad 1 Puff INH PRN Q6HRS PRN Hydrocodone-Apap 5-325 (Hydrocodone Bit/Acetaminophen) 1 Each Tablet 1 Tab PO PRN Q8HRS PRN Vitals/I & O Vital Sign - Last 24 Hours 11/24/19 11/24/19 11/24/19 11/24/19 12:53 12:53 12:54 15:00 Temp 98.5 98.5 Pulse 61 67 67 64 Resp 16 B/P (MAP) 163/91 163/91 163/91 151/85 (107) Pulse Ox 98 O2 Delivery Room Air 11/24/19 11/24/19 11/24/19 11/24/19 16:21 18:40 20:00 21:40 Temp 98.5 98.5 Pulse 64 64 64 Resp 16 B/P (MAP) 151/85 124/74 (91) 124/74 Pulse Ox 98 O2 Delivery Room Air Room Air 11/24/19 11/24/19 11/25/19 11/25/19 21:40 23:00 03:00 07:00 Temp 99.3 97.7 97.8 99.3 97.7 97.8 Pulse 64 65 66 65 Resp 17 17 18 B/P (MAP) 124/74 142/93 (109) 147/101 (116) 156/91 (112) Pulse Ox 98 98 98 O2 Delivery Room Air Room Air Room Air 11/25/19 11/25/19 11/25/19 11/25/19 08:30 10:24 10:25 10:25 Pulse 65 65 65 B/P (MAP) 156/91 156/91 156/91 O2 Delivery Room Air 11/25/19 11/25/19 10:26 10:29 Pulse 65 B/P (MAP) 156/91 O2 Delivery Room Air Intake and Output 11/24/19 11/24/19 11/25/19 15:00 23:00 07:00 Intake Total 200 ml 550 ml Balance 200 ml 550 ml Justicifation of Admission Dx: Justifications for Admission: Justification of Admission Dx: Yes Acute Renal Failure: Serum Cr > 4mg/dL JERRY JOLLEY MD Nov 25, 2019 12:19
[2019-11-25 15:00] VITALS: BP 128/73
[2019-11-25 18:45] VITALS: BP 114/74
[2019-11-25] MEDS: CYCLOBENZAPRINE 10 MG TABLET. PO SCH (21:00)
[2019-11-25 23:00] VITALS: BP 136/78
[2019-11-26 03:00] VITALS: BP 163/92
[2019-11-26] MEDS: HEPARIN for SUB-Q USE 5,000 UNIT/ML VIAL. SQ SCH ×2 (05:54→14:00)
[2019-11-26 07:00] VITALS: BP 159/91
[2019-11-26 07:05] LABS: ALBUMIN 3.2 g/dL (3.4-5.0); ALBUMIN/GLOBULIN RATIO 1.1 (1.0-1.7); CALCIUM 8.9 mg/dL (8.5-10.1); CREATININE 5.8 mg/dL (0.6-1.0); POTASSIUM 3.8 mmol/L (3.5-5.1); TOTAL BILIRUBIN 0.3 mg/dL (0.2-1.0); TOTAL PROTEIN 6.2 g/dL (6.4-8.2)
[2019-11-26] MEDS ORDERED: DIALYSIS PATIENT. MC PRN (08:45)
[2019-11-26] MEDS: cloNIDine HCL 0.2 MG TABLET PO SCH ×2 (09:00→14:03)
--- NOTE | 2019-11-26 09:22 | NUR ---
pt left for dialysis at this time Addendum: 11/26/19 at 1144 by NANDINI MACK RN RN did not give pt morning medications before dialysis, will hold until pt returns
--- NOTE | 2019-11-26 11:07 | PDOC ---
ANTHONY BUSTAMANTE [employer] 11/26/19 1107: CARDIO Progress Notes Date and Time Date of Service 11/26/19 Time of Evaluation 1100 Subjective Subjective: No Chest Pain, No shortness of breath, No Palpitations Vitals Vitals Vital Signs Date Time Temp Pulse Resp B/P (MAP) Pulse Ox O2 Delivery O2 Flow Rate FiO2 11/26/19 08:10 Room Air 11/26/19 07:39 98 11/26/19 07:00 98.0 58 16 159/91 (113) 98.0 Weight Weight [ ] Input and Output Intake and Output Intake and Output 11/26/19 07:00 Intake Total 950 ml Output Total 300 ml Balance 650 ml Intake Oral 950 ml Output Urine Total 300 ml Laboratory Labs Laboratory Tests Test 11/26/19 05:46 Sodium Level 139 mmol/L (136-145) Potassium Level 3.8 mmol/L (3.5-5.1) Chloride Level 100 mmol/L (98-107) Carbon Dioxide Level 29 mmol/L (21-32) Anion Gap 10 (6-14) Blood Urea Nitrogen 33 mg/dL (7-20) Creatinine 5.8 mg/dL (0.6-1.0) Estimated GFR (Cockcroft-Gault) 9.0 BUN/Creatinine Ratio 6 (6-20) Glucose Level 100 mg/dL (70-99) Calcium Level 8.9 mg/dL (8.5-10.1) Total Bilirubin 0.3 mg/dL (0.2-1.0) Aspartate Amino Transf (AST/SGOT) 12 U/L (15-37) Alanine Aminotransferase (ALT/SGPT) 11 U/L (14-59) Alkaline Phosphatase 52 U/L (46-116) Total Protein 6.2 g/dL (6.4-8.2) Albumin 3.2 g/dL (3.4-5.0) Albumin/Globulin Ratio 1.1 (1.0-1.7) Physical Exam HEENT: Neck Supple W Full Motion Chest: Symmetric LUNGS: Clear to Auscultation Heart: RRR Abdomen: Soft N/T Extremities: No Edema Neurology: alert, follow commands Assessment Assessment 1. CKD now ESRD; HD initiated 2. Hypertensive urgency; better controlled 3. Hyperlipidemia; LDL 63 4. Diabetes, II 5. H/o noncompliance Recommendations Continue current antiHTN therapy Monitor trends now that patient is on HD and titrate therapy as warranted Supportive care Follow up in our office upon discharge. Justicifation of Admission Dx: Justifications for Admission: Justification of Admission Dx: Yes Acute Renal Failure: Serum Cr > 4mg/dL REGLA NICHOLAS MD 11/26/19 1659: CARDIO Progress Notes Assessment Assessment Patient seen and examined CKD now ESRD; HD initiated. As per the renal service Hypertensive urgency; better controlled Hyperlipidemia; LDL 63 ANTHONY BUSTAMANTE APRN Nov 26, 2019 11:07 REGLA NICHOLAS MD Nov 26, 2019 16:59
--- NOTE | 2019-11-26 12:19 | NUR ---
SS following up with discharge planning. SS reviewed pt chart and discussed with pt RN. Pt is from home with spouse and is currently on room air. Pt new dialysis pt and started dialysis on 11/23/2019. Pt will need dialysis set up prior to discharging to home. Pt needing Hep B Total Core and COVID19 test for dialysis referral. Both labs ordered. SS will continue to follow for discharge planning.
--- NOTE | 2019-11-26 13:03 | PDOC ---
[facility] [facility] PROGRESS NOTE Chief Complaint Chief Complaint New initiation of dialysis several days ago Awaiting chair time for outpatient dialysis HTN Urgency Progressive Renal Failure CKD stage 4 secondary to likely HTN Nephropathy Anemia of CKD History of Present Illness History of Present Illness 11/25/2021 Patient seen and examined She is currently on dialysis She is somewhat angry about having to be on dialysis Discussed with RN Discussed with case management Chart reviewed We are awaiting chair time Vitals/I&O Vitals/I&O: Vital Signs Date Time Temp Pulse Resp B/P (MAP) Pulse Ox O2 Delivery O2 Flow Rate FiO2 11/26/19 08:10 Room Air 11/26/19 07:39 98 11/26/19 07:00 98.0 58 16 159/91 (113) 98.0 I & O 11/25/19 11/25/19 11/26/19 15:00 23:00 07:00 Intake Total 240 ml 100 ml 610 ml Output Total 300 ml Balance 240 ml 100 ml 310 ml Physical Exam General: mild distress Heart: Regular rate Abdomen: Normal bowel sounds Labs Labs: Laboratory Tests Test 11/26/19 05:46 Sodium Level 139 mmol/L (136-145) Potassium Level 3.8 mmol/L (3.5-5.1) Chloride Level 100 mmol/L (98-107) Carbon Dioxide Level 29 mmol/L (21-32) Anion Gap 10 (6-14) Blood Urea Nitrogen 33 mg/dL (7-20) Creatinine 5.8 mg/dL (0.6-1.0) Estimated GFR (Cockcroft-Gault) 9.0 BUN/Creatinine Ratio 6 (6-20) Glucose Level 100 mg/dL (70-99) Calcium Level 8.9 mg/dL (8.5-10.1) Total Bilirubin 0.3 mg/dL (0.2-1.0) Aspartate Amino Transf (AST/SGOT) 12 U/L (15-37) Alanine Aminotransferase (ALT/SGPT) 11 U/L (14-59) Alkaline Phosphatase 52 U/L (46-116) Total Protein 6.2 g/dL (6.4-8.2) Albumin 3.2 g/dL (3.4-5.0) Albumin/Globulin Ratio 1.1 (1.0-1.7) Assessment and Plan Assessmemt and Plan Problems Medical Problems: (1) Acute renal failure Status: Acute (2) Acute UTI Status: Acute (3) Anemia Status: Acute (4) Hypertensive urgency Status: Acute ASSESSMENT HTN Urgency Progressive Renal Failure CKD stage 4 secondary to likely HTN Nephropathy Anemia of CKD PLAN restartED home BP meds, prn BALLARD Tuesday dialysis lytes stable daily BMP dvt ppx full code need to arrange chair time for HD seat as outpatient. CM consult Comment Review of Relevant I have reviewed the following items latrell (where applicable) has been applied. Justicifation of Admission Dx: Justifications for Admission: Justification of Admission Dx: Yes Acute Renal Failure: Serum Cr > 4mg/dL CURLY SMART III DO Nov 26, 2019 13:03
[2019-11-26 14:02] VITALS: BP 201/117
[2019-11-26 14:04] VITALS: BP 201/117
[2019-11-26] MEDS: amLODIPine BESYLATE 10 MG TABLET PO SCH (14:04)
[2019-11-26] MEDS: ATENOLOL 50 MG TABLET. PO SCH (14:04)
[2019-11-26] MEDS: hydrALAZINE 25 MG TABLET PO SCH (14:04)
--- NOTE | 2019-11-26 14:48 | NUR ---
SS following up with discharge planning. Pt wanting to discharge today. Dr. Ayala spoke with Divya Jackson at [facility] ; fax [phone], and pt was sent up for dialysis to start on , 11/29/2019, at [facility]. Pt will have Tuesday, , Tuesday time slot at 0600. Divya reported that if COVID19 test is not back for some reason then pt can come to there PUI clinic time at 1600 on 11/29/2019. Divya requested that SS send incomplete referral to [facility] and request that they contact her with questions. SS phoned and faxed incomplete referral to [facility], ; fax [phone]. Pt will discharge to home today per RN. Pt instructed to call the lab at [facility] on 11/28/2019 and request COVID19 results be faxed to [facility] at fax [phone].
--- NOTE | 2019-11-26 14:56 | PDOC ---
Renal-Progress Notes Subjective Notes Notes NO NEW COMPLAINTS History of Present Illness Hx of present illness STABLE Vitals Vitals Vital Signs Date Time Temp Pulse Resp B/P (MAP) Pulse Ox O2 Delivery O2 Flow Rate FiO2 11/26/19 14:04 76 201/117 11/26/19 14:02 Room Air 11/26/19 07:39 98 11/26/19 07:00 98.0 16 98.0 Weight Weight [ ] I.O. Intake and Output Intake and Output 11/26/19 07:00 Intake Total 950 ml Output Total 300 ml Balance 650 ml Intake Oral 950 ml Output Urine Total 300 ml Labs Labs Laboratory Tests Test 11/26/19 05:46 Sodium Level 139 mmol/L (136-145) Potassium Level 3.8 mmol/L (3.5-5.1) Chloride Level 100 mmol/L (98-107) Carbon Dioxide Level 29 mmol/L (21-32) Anion Gap 10 (6-14) Blood Urea Nitrogen 33 mg/dL (7-20) Creatinine 5.8 mg/dL (0.6-1.0) Estimated GFR (Cockcroft-Gault) 9.0 BUN/Creatinine Ratio 6 (6-20) Glucose Level 100 mg/dL (70-99) Calcium Level 8.9 mg/dL (8.5-10.1) Total Bilirubin 0.3 mg/dL (0.2-1.0) Aspartate Amino Transf (AST/SGOT) 12 U/L (15-37) Alanine Aminotransferase (ALT/SGPT) 11 U/L (14-59) Alkaline Phosphatase 52 U/L (46-116) Total Protein 6.2 g/dL (6.4-8.2) Albumin 3.2 g/dL (3.4-5.0) Albumin/Globulin Ratio 1.1 (1.0-1.7) Review of Systems Constitutional: yes: weakness, alert, oriented Ears/Nose/Throat: Yes: no symptom reported Eyes: Yes: no symptom reported Pulmonary: Yes no symptom reported Cardiovascular: Yes no symptom reported Gastrointestional: Yes: no symptom reported Genitourinary: Yes: no symptom reported Musculoskeletal: Yes: no symptom reported Skin: Yes no symptom reported Psychiatric/Neurological: Yes: no symptom reported Endocrine: Yes: no symptom reported Physical Exam General Appearance: no apparent distress Skin: warm Respiratory: bilateral CTA Heart: S1S2 Abdomen: soft, bowel sounds present Genitourinary: bladder flat Extremities: pulses present Neurology: alert, oriented Assessment Assessment IMP ESRD ANEMIA NON COMPLIANCE HTN URGENCY PLAN HD TODAY UF TO DW OP HD ONCE SET UP PUI FOR NOW ENC COMPLIANCE JUVENAL LYLES MD Nov 26, 2019 14:56
--- NOTE | 2019-11-26 16:05 | NUR ---
pt is discharged home with self care at 1515 via wheelchair via LUCINA Styles in stable condition. pt has all belongings with her. pt received discharge instructions and stated she had no further questions for me.
--- NOTE | 2019-12-11 11:59 | DS ---
DATE OF DISCHARGE: 11/26/2019 ADMISSION DIAGNOSIS: End-stage renal disease. DISCHARGE DIAGNOSIS: New initiation of dialysis. CONSULTS: Nephrology. PROCEDURES: Dialysis and dialysis catheter placement. HOSPITAL COURSE: The patient is a pleasant middle-aged female, who presented with elevated creatinine and she came from her primary care doctor's office. She was admitted. We consulted Nephrology. We initiated dialysis. She got a few treatments and then went home. DISPOSITION: Home. ACTIVITY: As tolerated. DIET: Renal. MEDICATIONS: Please see the MRAD. TOTAL TIME: 31 minutes. CURLY SMART DO DR: MICHAEL/deya JOB#: [id number] / [id number]
== END 2019-11-26 15:15 | disposition home or self-care (01) | DRG 674 ==
LOC: ER 17:42 → ED HOLD 18:59 → 2 NORTH 21:31
PROVIDERS: ADMIT Family Medicine; ATTEND Family Medicine
PROC: 0JH63XZ Insertion of Tunneled Vascular Access Device into Chest Subcutaneous Tissue and Fascia, Percutaneous Approach (ICD-10-PCS; principal; 2019-11-23)
PROC: B5181ZA Fluoroscopy of Superior Vena Cava using Low Osmolar Contrast, Guidance (ICD-10-PCS; 2019-11-23)
PROC: 02H633Z Insertion of Infusion Device into Right Atrium, Percutaneous Approach (ICD-10-PCS; 2019-11-23)
PROC: B548ZZA Ultrasonography of Superior Vena Cava, Guidance (ICD-10-PCS; 2019-11-23)
PROC: 5A1D70Z Performance of Urinary Filtration, Intermittent, Less than 6 Hours Per Day (ICD-10-PCS; 2019-11-23)
PROC: 5A1D70Z Performance of Urinary Filtration, Intermittent, Less than 6 Hours Per Day (ICD-10-PCS; 2019-11-24)
PROC: 5A1D70Z Performance of Urinary Filtration, Intermittent, Less than 6 Hours Per Day (ICD-10-PCS; 2019-11-26)
DX: N17.9 Acute kidney failure, unspecified (principal); N39.0 Urinary tract infection, site not specified; I16.0 Hypertensive urgency; N18.6 End stage renal disease; D63.1 Anemia in chronic kidney disease; E11.22 Type 2 diabetes mellitus with diabetic chronic kidney disease; E78.00 Pure hypercholesterolemia, unspecified; E78.5 Hyperlipidemia, unspecified; F17.210 Nicotine dependence, cigarettes, uncomplicated; I12.9 Hypertensive chronic kidney disease with stage 1 through stage 4 chronic kidney disease, or unspecified chronic kidney disease; J44.9 Chronic obstructive pulmonary disease, unspecified; Z79.899 Other long term (current) drug therapy; Z82.49 Family history of ischemic heart disease and other diseases of the circulatory system; Z91.19 Patient's noncompliance with other medical treatment and regimen; Z99.2 Dependence on renal dialysis
CPT/HCPCS: 36415; 36558; 71045; 76937; 77001; 80048; 80053; 80061; 80076; 81001; 82728; 82962; 83540; 83550; 85025; 85610; 85730; 86317; 86704; 87340; 93005; 94760; 96361; 96374; 96375; 99152; 99153; 99291; C1750; C1892; J0360; J0690; J0696; J1644; J2250; J3010; J3490; J7030; G0378; U0003-CS

== ENCOUNTER → 2020-09-22 | Outpatient (CLI) | payer OTHER ==
[~2020-09-22] MED LIST changes: +AMLO-186 PO; +AMLO-187 PO; -AMLO5TAB10 PO; +ATEN50TA PO; +HYDR-2868 PO; +OLME40TA12 PO
--- NOTE | 2020-09-22 15:14 | RAD ---
EXAM: Chest, single view. HISTORY: Chronic renal disease. COMPARISON: None. FINDINGS: A frontal view of the chest is obtained. There are moderate right and small left pleural ef fusions. There is right infrahilar compressive atelectasis or infiltrate. There is a right internal j ugular catheter with the tip in the superior cavoatrial junction. There is a prominent cardiac silhou ette. There is a linear metallic foreign body overlying the left neck. IMPRESSION: Moderate right and small left pleural effusions with right infrahilar atelectasis or infi ltrate. Electronically signed by: Constance Guajardo MD (09/22/2020 3:11 PM) [id number]
== END ==
LOC: RAD 14:20
PROVIDERS: ATTEND Nurse Practitioner Adult Health
DX: N18.5 Chronic kidney disease, stage 5 (principal); J90 Pleural effusion, not elsewhere classified
CPT/HCPCS: 71045

== ENCOUNTER → 2020-09-24 | Outpatient (CLI) | payer OTHER | LOC: LAB 14:10 | PROVIDERS: ATTEND Nurse Practitioner Adult Health | DX: I12.0 Hypertensive chronic kidney disease with stage 5 chronic kidney disease or end stage renal disease (principal); N18.5 Chronic kidney disease, stage 5; E11.22 Type 2 diabetes mellitus with diabetic chronic kidney disease; E83.52 Hypercalcemia; Z68.25 Body mass index [BMI] 25.0-25.9, adult | CPT/HCPCS: 36415; 86704; 86706; 86803; 87340 ==